=== PATIENT | female | born 1955 | race Caucasian/White ===

== ENCOUNTER → 2016-12-08 | Outpatient (REF) | payer OTHER | LOC: M LAB REF 12:58 | PROVIDERS: ATTEND Internal Medicine Medical Oncology | DX: C20 Malignant neoplasm of rectum (principal) ==

== ENCOUNTER → 2017-02-16 | Outpatient (REF) | payer OTHER | LOC: M LAB REF 19:25 | PROVIDERS: ATTEND Physician Assistant | DX: J02.9 Acute pharyngitis, unspecified (principal) ==

== ENCOUNTER → 2017-04-19 | Outpatient (CLI) | payer OTHER ==
[~2017-04-19] MED LIST: GASTROGRAFIN SOLUTION 30ML (Q9963) As Ordered ONE; ISOVUE-370 76% 100ML VIAL (Q9967) As Ordered ONE
--- NOTE | 2017-04-19 16:14 | REP ---
CT of the chest with IV contrast: Comparison is 04/14/2015. There are no lung masses or nodules. There are no infiltrates or effusions. There is no mediastinal, hilar or axillary adenopathy. The thoracic aorta is unremarkable. Cardiac size is normal. There is no pericardial effusion. Impression: Negative CT study of the chest. There is no interval change. Signed by Hiram Duong MD 04/19/2017 04:05 P
--- NOTE | 2017-04-19 16:24 | REP ---
CT of the abdomen and pelvis without and with IV contrast and with bowel contrast: The liver is study prior to IV contrast. After IV contrast scanning of the abdomen from the diaphragms to the pubic symphysis is performed.. The visualized lower lung smith are unremarkable. The hepatic parenchyma is homogeneous on both phases of the study except for a small hepatic cyst in the left lobe of the liver. This is unchanged. The gallbladder, pancreas and spleen are unremarkable and unchanged. The adrenals, kidneys and abdominal aorta are unremarkable except for bilateral renal parapelvic cysts, unchanged. There is no mesenteric or retroperitoneal adenopathy. There is no ascites. There is midline ventral hernia containing a loop of colon just posterior to the umbilicus. This is slightly larger than on the comparison study. There is a new spigelian hernia on the right containing multiple large bowel and small bowel loops, not present previously. The peritoneal defect measures 4.9 cm and the hernia sac measures 16 cm craniocaudad by 21 cm transversely. There is no bowel obstruction. No bowel wall thickening. No edema of the mesenteric fat within the hernia. Pelvis: The cecum and appendix c are contained in the large right lower quadrant hernia sac t but are unremarkable. There is no ascites or adenopathy. The bladder, uterus and adnexa are unremarkable except for an 18 mm right adnexal follicle and a 19 mm left adnexal follicle. Impression: No evidence of metastatic disease, ascites or adenopathy. No evidence of tumor recurrence at the anastomosis of the rectosigmoid colon. There is a new large right lower quadrant spigelian hernia. There is a ventral hernia behind the umbilicus containing a loop of colon, larger than on the comparison study. There are bilateral adnexal follicles. Otherwise, negative CT of the abdomen and pelvis. Signed by Hiram Duong MD 04/19/2017 04:16 P
== END ==
LOC: M RAD 13:07
PROVIDERS: ATTEND Internal Medicine Medical Oncology
DX: C20 Malignant neoplasm of rectum (principal)

== ENCOUNTER → 2017-04-22 | Outpatient (REF) | payer OTHER | LOC: M LAB REF 13:20 | PROVIDERS: ATTEND Internal Medicine Medical Oncology | DX: C20 Malignant neoplasm of rectum (principal) ==

== ENCOUNTER → 2017-10-24 | Outpatient (REF) | payer OTHER ==
[2017-10-25 09:36] LABS: CARCINOEMBRYONIC ANTIGEN < 0.5 NG/ML (<2.5)
== END ==
LOC: M LAB REF 13:29
DX: C20 Malignant neoplasm of rectum (principal)
CPT/HCPCS: 82378

== ENCOUNTER 2018-03-18 08:01 | Emergency (ER) | payer OTHER ==
[2018-03-18] MEDS: NS 1,000 ML IV (09:30)
[2018-03-18 10:09] LABS: BASO % 0.3 % (0.0-1.0); EOS # 0.2 10^3/uL (0.0-0.50); HEMATOCRIT 41.8 % (36.0-47.0); HEMOGLOBIN 13.4 g/dl (12.0-15.5); IMMATURE GRANULOCYTE % 0.4 % (0-3.0); LYMPH # 1.1 10^3/uL (1.5-4.5); LYMPH % 9.2 % (24.0-44.0); MEAN CORPUSCULAR HEMOGLOBIN 25.5 pg (27.0-33.0); MEAN CORPUSCULAR HGB CONC 32.1 g/dl (32.0-36.5); MEAN CORPUSCULAR VOLUME 79.6 fl (80.0-96.0); MONO # 0.8 10^3/uL (0.0-0.8); MONO % 6.9 % (0.0-5.0); NEUTROPHILS # 9.4 10^3/uL (1.8-7.7); NEUTROPHILS % 81.2 % (36.0-66.0); PLATELET COUNT, AUTOMATED 343 10^3/uL (150-450); RED BLOOD COUNT 5.25 10^6/uL (4.00-5.40); RED CELL DISTRIBUTION WIDTH 14.9 % (11.5-14.5); WHITE BLOOD COUNT 11.6 10^3/uL (4.0-10.0)
[2018-03-18 10:33] LABS: ALBUMIN 2.8 GM/DL (3.2-5.2); ALBUMIN/GLOBULIN RATIO 0.72 (1.00-1.93); ALKALINE PHOSPHATASE 88 U/L (45-117); ALT/SGPT 13 U/L (12-78); AMYLASE 27 U/L (25-115); ANION GAP 10 MEQ/L (8-16); AST/SGOT 15 U/L (7-37); BILIRUBIN,DIRECT 0.1 MG/DL (0.0-0.2); BILIRUBIN,TOTAL 0.4 MG/DL (0.2-1.0); BLOOD UREA NITROGEN 13 MG/DL (7-18); CALCIUM LEVEL 8.1 MG/DL (8.8-10.2); CARBON DIOXIDE LEVEL 25 MEQ/L (21-32); CHLORIDE LEVEL 105 MEQ/L (98-107); CPK CREATINE PHOSPHOKINASE 204 U/L (26-192); CREATININE FOR GFR 0.63 MG/DL (0.55-1.30); GLOMERULAR FILTRATION RATE > 60.0 (>45); GLUCOSE, FASTING 124 MG/DL (70-100); LIPASE 99 U/L (73-393); POTASSIUM SERUM 4.1 MEQ/L (3.5-5.1); SODIUM LEVEL 140 MEQ/L (136-145); TOTAL PROTEIN 6.7 GM/DL (6.4-8.2); TROPONIN I < 0.02 NG/ML (< 0.10)
[2018-03-18 10:34] LABS: CK-MB VALUE MASS 1.1 NG/ML (<3.6); MB/CK RELATIVE INDEX 0.53 (< OR =4)
[2018-03-18 11:03] LABS: CALCIUM OXALATE CRYSTALS RFX SMALL; KETONE, URINE AUTO RFX NEGATIVE (NEGATIVE); LEUKOCYTE ESTERASE UR AUTO RFX TRACE (NEGATIVE); MUCUS, URINE RFX SMALL (NEGATIVE); NITRITE, URINE AUTO RFX NEGATIVE (NEGATIVE); RBC, URINE AUTO RFX 5 /HPF (0-3); SQUAM EPITHELIAL CELL UR AURFX 3 /HPF (0-6); WBC, URINE AUTO RFX 7 /HPF (0-3)
[2018-03-18] MEDS: GASTROGRAFIN SOLUTION 30ML PO ×2 (11:33→12:03)
[2018-03-18] MEDS ORDERED: ISOVUE-370 76% 100ML VIAL (Q9967) As Ordered (12:18)
== END 2018-03-18 14:43 | disposition home or self-care (01) ==
LOC: M ED 08:01
DX: K52.9 Noninfective gastroenteritis and colitis, unspecified (principal); L08.9 Local infection of the skin and subcutaneous tissue, unspecified; K76.0 Fatty (change of) liver, not elsewhere classified; Z85.038 Personal history of other malignant neoplasm of large intestine; Z93.2 Ileostomy status; Z89.412 Acquired absence of left great toe; Z91.89 Other specified personal risk factors, not elsewhere classified; Z88.0 Allergy status to penicillin; Z88.1 Allergy status to other antibiotic agents
CPT/HCPCS: Q9963

== ENCOUNTER → 2018-04-21 | Outpatient (CLI) | payer OTHER ==
[~2018-04-21] MED LIST changes: -GASTROGRAFIN SOLUTION 30ML (Q9963) As Ordered ONE; +ISOVUE-370 76% 100ML VIAL (Q9967) As Ordered; -ISOVUE-370 76% 100ML VIAL (Q9967) As Ordered ONE
== END ==
LOC: M RAD 09:28
DX: C20 Malignant neoplasm of rectum (principal); J84.10 Pulmonary fibrosis, unspecified
CPT/HCPCS: Q9967

== ENCOUNTER → 2018-05-23 | Outpatient (CLI) | payer OTHER ==
[~2018-05-23] MED LIST changes: +GASTROGRAFIN SOLUTION 30ML (Q9963) As Ordered
== END ==
LOC: M RAD 12:27
DX: C20 Malignant neoplasm of rectum (principal)
CPT/HCPCS: Q9963

== ENCOUNTER → 2018-05-24 | Outpatient (REF) | payer OTHER ==
[2018-05-24 19:27] LABS: FERRITIN 188 NG/ML (8-252); IRON (FE) 57 UG/DL (50-170); PERCENT SATURATION 24.2 % (13.2-45.0); TOTAL IRON BINDING CAPACITY 236 UG/DL (250-450)
[2018-05-26 10:12] LABS: CARCINOEMBRYONIC ANTIGEN < 0.5 NG/ML (<2.5)
== END ==
LOC: M LAB REF 18:00
DX: Z08 Encounter for follow-up examination after completed treatment for malignant neoplasm (principal); Z85.048 Personal history of other malignant neoplasm of rectum, rectosigmoid junction, and anus
CPT/HCPCS: 82378

== ENCOUNTER 2018-11-03 11:43 | Emergency (ER) | payer BC ==
[~2018-11-03] VITALS: Ht 165.1 cm; Wt 110.0 kg
[2018-11-03 11:43] VITALS: BP 134/85
[~2018-11-03 11:43] MED LIST changes: -ONDA4TAB6 PO
[2018-11-03] MEDS: GASTROGRAFIN SOLUTION 30ML PO SCH ×2 (12:33→13:05)
[2018-11-03 12:34] LABS: BASO % 0.3 % (0.0-1.0); EOS # 0.3 10^3/uL (0.0-0.50); EOS % 2.8 % (0.0-3.0); HEMATOCRIT 44.7 % (36.0-47.0); HEMOGLOBIN 14.3 g/dl (12.0-15.5); LYMPH # 1.5 10^3/uL (1.5-4.5); LYMPH % 14.6 % (24.0-44.0); MEAN CORPUSCULAR HEMOGLOBIN 26.8 pg (27.0-33.0); MEAN CORPUSCULAR VOLUME 83.7 fl (80.0-96.0); MONO # 0.9 10^3/uL (0.0-0.8); MONO % 8.9 % (0.0-5.0); NEUTROPHILS # 7.3 10^3/uL (1.8-7.7); PLATELET COUNT, AUTOMATED 325 10^3/uL (150-450); RED BLOOD COUNT 5.34 10^6/uL (4.00-5.40)
[2018-11-03 13:05] LABS: ALBUMIN 3.1 GM/DL (3.2-5.2); ALT/SGPT 18 U/L (12-78); BILIRUBIN,DIRECT 0.2 MG/DL (0.0-0.2); BILIRUBIN,TOTAL 0.7 MG/DL (0.2-1.0); BLOOD UREA NITROGEN 12 MG/DL (7-18); CALCIUM LEVEL 8.6 MG/DL (8.8-10.2); CARBON DIOXIDE LEVEL 27 MEQ/L (21-32); CHLORIDE LEVEL 106 MEQ/L (98-107); CREATININE FOR GFR 0.67 MG/DL (0.55-1.30); GLOMERULAR FILTRATION RATE > 60.0 (>45); GLUCOSE, FASTING 92 MG/DL (70-100); LIPASE 110 U/L (73-393); POTASSIUM SERUM 4.4 MEQ/L (3.5-5.1); SODIUM LEVEL 140 MEQ/L (136-145); TOTAL PROTEIN 6.8 GM/DL (6.4-8.2)
[2018-11-03] MEDS ORDERED: ISOVUE-370 76% 100ML VIAL (Q9967) As Ordered ONE (14:00)
--- NOTE | 2018-11-03 14:35 | REP ---
Clinical: Abdominal pain and diarrhea. Technique: Axial contrast enhanced images from the lung bases to the pubic symphysis using oral (per protocol) and 100 ml Isovue 370 intravenous contrast material with coronal and sagittal re-formations. Comparison: 05/23/2018. Findings: Mucosal thickening of small bowel in the mid to lower abdomen is appreciated suggesting infectious/inflammatory enteritis. Few of these irregular loops of small bowel appear somewhat tethered to the anterior abdominal wall in relation to the a known small midline ventral hernia which contains a small amount of fluid and trapped fat but without evidence for associated bowel obstruction (images [id number]). Along the right lateral anterior abdominopelvic wall there is a rim enhancing centrally necrotic/cystic lesion with surrounding small amount of fluid and subcutaneous fat stranding which currently measures roughly 6.5 x 4.4 cm and is decreased from prior examination (previously measuring 7.8 x 7.0 cm). This may reflect abscess versus necrotic metastatic focus. Liver, spleen, pancreas, gallbladder, bilateral adrenal glands and kidneys are normal / stable. Bilateral dinorah pelvic renal cysts are again noted. Pelvis demonstrates normal bladder and age-appropriate uterus/adnexa there appears to be evidence for prior partial sigmoid resection and reanastomosis at the rectosigmoid level which appears clean. No significant ascites. No free air. No intraperitoneal or retroperitoneal adenopathy. Abdominal aorta without aneurysm or dissection. Osseous structures without focal aggressive osseous lesion. Lung bases are clear. Impression: 1. Moderate length of small bowel demonstrating mucosal thickening suggests an acute infectious/inflammatory enteritis. However, given the patient's history, malignancy cannot definitively be excluded and warrants followup to resolution. 2. Anterior abdominal wall ventral hernia containing fluid and trapped fat with the above mentioned adjacent small bowel but without evidence for small bowel obstruction. This appears similar to prior examination. 3. Abscess versus a cystic / necrotic lesion in the subcutaneous tissues of the anterior right lateral abdominal wall is decreased in size from prior examination. 4. Further chronic changes as described above. Electronically Signed by Ovi Saunders MD 11/03/2018 02:26 P
[2018-11-03] MEDS ORDERED: ONDA4TAB6 PO (15:24)
== END 2018-11-03 15:34 | disposition home or self-care (01) ==
LOC: M ED 11:43
DX: K52.9 Noninfective gastroenteritis and colitis, unspecified (principal)
CPT/HCPCS: 74177; 80048; 80076; 81001; 83690; 85025; 87086; 99283; Q9963; Q9967

== ENCOUNTER → 2018-11-03 | Outpatient (REF) | payer BC ==
[~2018-11-03] MED LIST changes: +CIPR-249 PO; +FLAG500T PO; -GASTROGRAFIN SOLUTION 30ML (Q9963) As Ordered; -ISOVUE-370 76% 100ML VIAL (Q9967) As Ordered; +NORCOTAB PO; +ONDA4TAB6 PO
== END ==
LOC: M LAB REF 18:49
PROVIDERS: ATTEND Emergency Medicine
DX: Z13.9 Encounter for screening, unspecified (principal)

== ENCOUNTER → 2018-11-27 | Outpatient (CLI) | payer BC ==
[~2018-11-27] MED LIST changes: +ONDA4TAB6 PO
[2018-11-27 10:21] LABS: BASO # 0.1 10^3/uL (0.0-0.2); BASO % 0.8 % (0.0-1.0); EOS # 0.5 10^3/uL (0.0-0.50); EOS % 6.1 % (0.0-3.0); HEMATOCRIT 39.8 % (36.0-47.0); HEMOGLOBIN 12.7 g/dl (12.0-15.5); LYMPH # 1.6 10^3/uL (1.5-4.5); LYMPH % 22.2 % (24.0-44.0); MEAN CORPUSCULAR HEMOGLOBIN 26.7 pg (27.0-33.0); MEAN CORPUSCULAR HGB CONC 31.9 g/dl (32.0-36.5); MEAN CORPUSCULAR VOLUME 83.6 fl (80.0-96.0); MONO # 0.7 10^3/uL (0.0-0.8); MONO % 9.5 % (0.0-5.0); NEUTROPHILS # 4.5 10^3/uL (1.8-7.7); NEUTROPHILS % 61.3 % (36.0-66.0); PLATELET COUNT, AUTOMATED 275 10^3/uL (150-450); RED BLOOD COUNT 4.76 10^6/uL (4.00-5.40); WHITE BLOOD COUNT 7.3 10^3/uL (4.0-10.0)
[2018-11-27 10:56] LABS: ALBUMIN 3.3 GM/DL (3.2-5.2); ALT/SGPT 17 U/L (12-78); BILIRUBIN,TOTAL 0.4 MG/DL (0.2-1.0); BLOOD UREA NITROGEN 14 MG/DL (7-18); CALCIUM LEVEL 8.4 MG/DL (8.8-10.2); CARBON DIOXIDE LEVEL 29 MEQ/L (21-32); CHLORIDE LEVEL 106 MEQ/L (98-107); CHOLESTEROL LEVEL 170 MG/DL (<200); CHOLESTEROL RISK RATIO 2.741 (<5); CREATININE FOR GFR 0.66 MG/DL (0.55-1.30); FREE T4 1.18 NG/DL (0.76-1.46); GLOMERULAR FILTRATION RATE > 60.0 (>45); GLUCOSE, FASTING 95 MG/DL (70-100); HDL CHOLESTEROL 62 MG/DL (>40); LDL CHOLESTEROL 96 MG/DL (<100); NON-HDL-C 108 MG/DL; POTASSIUM SERUM 3.8 MEQ/L (3.5-5.1); SODIUM LEVEL 142 MEQ/L (136-145); TOTAL PROTEIN 6.7 GM/DL (6.4-8.2); TRIGLYCERIDES LEVEL 61 MG/DL (<150)
== END ==
LOC: M LAB 09:31
PROVIDERS: ATTEND Physician Assistant Medical
DX: Z00.00 Encounter for general adult medical examination without abnormal findings (principal); Z82.49 Family history of ischemic heart disease and other diseases of the circulatory system

== ENCOUNTER 2018-12-15 21:19 | Emergency (ER) | payer BC ==
[~2018-12-15] VITALS: Ht 165.1 cm; Wt 109.1 kg
[~2018-12-15 21:19] MED LIST changes: +HYDR-3715 PO; -NORCOTAB PO
[2018-12-15] MEDS: GASTROGRAFIN SOLUTION 30ML PO SCH ×2 (22:30→23:00)
[2018-12-15 22:42] LABS: BASO # 0.1 10^3/uL (0.0-0.2); BASO % 0.6 % (0.0-1.0); EOS # 0.4 10^3/uL (0.0-0.50); EOS % 4.6 % (0.0-3.0); HEMATOCRIT 40.3 % (36.0-47.0); HEMOGLOBIN 13.1 g/dl (12.0-15.5); LYMPH # 2.1 10^3/uL (1.5-4.5); MEAN CORPUSCULAR HGB CONC 32.5 g/dl (32.0-36.5); MEAN CORPUSCULAR VOLUME 82.9 fl (80.0-96.0); MONO # 0.7 10^3/uL (0.0-0.8); MONO % 8.5 % (0.0-5.0); NEUTROPHILS # 5.1 10^3/uL (1.8-7.7); NEUTROPHILS % 61.1 % (36.0-66.0); PLATELET COUNT, AUTOMATED 244 10^3/uL (150-450); RED BLOOD COUNT 4.86 10^6/uL (4.00-5.40); WHITE BLOOD COUNT 8.3 10^3/uL (4.0-10.0)
[2018-12-15 23:09] LABS: ALBUMIN 3.2 GM/DL (3.2-5.2); ALT/SGPT 14 U/L (12-78); BILIRUBIN,DIRECT 0.1 MG/DL (0.0-0.2); BILIRUBIN,TOTAL 0.5 MG/DL (0.2-1.0); BLOOD UREA NITROGEN 13 MG/DL (7-18); CALCIUM LEVEL 8.2 MG/DL (8.8-10.2); CARBON DIOXIDE LEVEL 26 MEQ/L (21-32); CHLORIDE LEVEL 106 MEQ/L (98-107); CREATININE FOR GFR 0.62 MG/DL (0.55-1.30); GLOMERULAR FILTRATION RATE > 60.0 (>45); GLUCOSE, FASTING 91 MG/DL (70-100); LIPASE 111 U/L (73-393); POTASSIUM SERUM 3.6 MEQ/L (3.5-5.1); SODIUM LEVEL 141 MEQ/L (136-145); TOTAL PROTEIN 6.3 GM/DL (6.4-8.2)
[2018-12-16] MEDS ORDERED: CIPR-249 PO (00:09)
[2018-12-16 00:30] VITALS: BP 133/79
--- NOTE | 2018-12-16 08:11 | REP ---
Abdomen series: Four views. History: Abdomen pain and cough. Findings: Upright chest radiograph is compared with the May 28, 2015 study. Lungs are well inflated and clear. Heart is not enlarged. There is no evidence of infiltrate or free subdiaphragmatic air. Supine and erect views of the abdomen reveal a normal bowel gas pattern. There is an anastomotic suture line in the central pelvis suggesting prior colon resection. No small or large bowel dilation is seen. Flank stripes are intact. No mass organomegaly is appreciated. There are two metallic densities projecting over the right pelvis which appear to be clothing artifact. Impression: Unremarkable bowel gas pattern. Surgical anastomosis in the central pelvis. No evidence of obstruction or free air. Electronically Signed by Nader Dos Santos MD 12/16/2018 08:02 A
== END 2018-12-16 00:55 | disposition home or self-care (01) ==
LOC: M ED 21:19
DX: N39.0 Urinary tract infection, site not specified (principal); Z85.038 Personal history of other malignant neoplasm of large intestine; Z88.0 Allergy status to penicillin; Z88.1 Allergy status to other antibiotic agents; Z91.048 Other nonmedicinal substance allergy status

== ENCOUNTER → 2019-04-17 | Outpatient (CLI) | payer BC ==
[~2019-04-17] MED LIST changes: +GASTROGRAFIN SOLUTION 30ML (Q9963) As Ordered ONE; +ISOVUE-370 76% 100ML VIAL (Q9967) As Ordered ONE
--- NOTE | 2019-04-18 07:36 | REP ---
REASON FOR EXAM: History of rectal carcinoma. COMPARISON EXAM: Multiple, latest which is dated 11/03/2018. CONTRAST: 100 mL Isovue 370. The liver, gallbladder, spleen, pancreas, adrenal glands, and kidneys are unchanged. Once again, there are bilateral renal parapelvic cysts status quo. The abdominal aorta and paraaortic regions are unchanged. No mass or adenopathy has developed. Note is again made of a ventral hernia through which multiple small bowel loops protrude. There is no intestinal obstruction. The bowel loops and their mesenteries are otherwise within normal limits. Small bowel wall thickening seen on the prior exam has abated. There is no free fluid or free air. CT PELVIS: The bowel loops and their mesenteries are within normal limits. There is no free fluid or free air. There is a low density nodule in the right adnexa possibly representing a small 2 cm ovarian cyst. There is a similar finding on the left adnexa possibly representing a small ovarian cyst. This is difficult to evaluate with CT. There is no pelvic sidewall adenopathy. There is no free fluid or free air. Along the right anterior abdominal wall note is again made of a mixed asymmetric density with fatty infiltrations surrounding it. Today this measures all approximately 6.8 x 8.6 x 2.8 cm. It has gotten smaller when the total dimension is compared to the prior total dimension. Bone window technique throughout the examination shows no significant change in the appearance of the osseous structures. Chronic changes are noted status quo. IMPRESSION: 1. Abnormal mixed density along the right anterior abdominal wall at the level of the upper pelvis has gotten smaller. 2. Possible small bilateral ovarian cyst. Consider pelvic ultrasonography if relevant. 3. Ventral hernia as described above. 4. Other findings as described above. Electronically Signed by Enrique Neal DO 04/18/2019 09:34 A
--- NOTE | 2019-04-18 08:10 | REP ---
REASON: History of rectal carcinoma. COMPARISON: Multiple, the latest 04/21/2018. CONTRAST: 100 mL Isovue 370. The mediastinal and pulmonary callie are stable. There is no evidence of a mass or adenopathy. There are no pleural or pericardial effusions. The imaged osseous structures are stable and intact. Evaluation of the lung smith shows no new abnormal nodule, mass, or opacity. IMPRESSION: Stable CT examination of the chest. There is no evidence of acute disease. Electronically Signed by Enrique Neal DO 04/18/2019 09:36 A
== END ==
LOC: M RAD 11:56
PROVIDERS: ATTEND Internal Medicine Medical Oncology
DX: C20 Malignant neoplasm of rectum (principal)

== ENCOUNTER → 2019-04-24 | Outpatient (CLI) | payer BC ==
[~2019-04-24] MED LIST changes: -GASTROGRAFIN SOLUTION 30ML (Q9963) As Ordered ONE; -ISOVUE-370 76% 100ML VIAL (Q9967) As Ordered ONE
--- NOTE | 2019-04-24 15:49 | REPMRS ---
Patient History The patient states she has not had a clinical breast exam in over a year. Patient is postmenopausal, has history of rectal cancer at age 58, and had first child at age 31. Family history of colorectal cancer in father, breast cancer in maternal aunt, unknown cancer in paternal cousin. 3D TOMOSYNTHESIS WAS PERFORMED. The [facility] lifetime risk for breast cancer is 12.6%. Digital Mammo Screening Bilat: April 24, 2019 - Exam #: [id number] Bilateral CC and MLO view(s) were taken. Technologist: Dee Potts, Technologist Prior study comparison: 2017, bilateral screening mammogram, performed at [facility]. FINDINGS: There are scattered fibroglandular densities. There has been no change in the appearance of the mammogram from the prior studies. There is a mild amount of residual fibroglandular tissue which is fairly symmetric. There is no interval development of dominant mass, architectural distortion, or clustered microcalcification suggestive of malignancy. Assessment: BI-RADS/ACR category 1 mammogram. Negative Mammogram. Recommendation Routine screening mammogram in 1 year (for women over age 40). This mammogram was interpreted with the aid of an FDA-approved computer-aided dectection system. Electronically Signed By: Hiram Schuler MD 04/24/19 [id number]
== END ==
LOC: M RAD 11:42
PROVIDERS: ATTEND Physician Assistant Medical
DX: Z12.31 Encounter for screening mammogram for malignant neoplasm of breast (principal); Z85.3 Personal history of malignant neoplasm of breast; Z80.0 Family history of malignant neoplasm of digestive organs; Z85.048 Personal history of other malignant neoplasm of rectum, rectosigmoid junction, and anus

== ENCOUNTER 2019-05-19 14:27 | Emergency (ER) | payer BC ==
[~2019-05-19] VITALS: Ht 165.1 cm; Wt 109.1 kg
[2019-05-19 15:03] LABS: BASO # 0.1 10^3/uL (0.0-0.2); BASO % 0.5 % (0.0-1.0); EOS # 0.1 10^3/uL (0.0-0.5); EOS % 0.8 % (0.0-3.0); HEMATOCRIT 45.2 % (36.0-47.0); HEMOGLOBIN 14.9 g/dl (12.0-15.5); LYMPH # 1.6 10^3/uL (1.5-5.0); LYMPH % 14.8 % (24.0-44.0); MEAN CORPUSCULAR HEMOGLOBIN 27.8 pg (27.0-33.0); MEAN CORPUSCULAR VOLUME 84.3 fl (80.0-96.0); MONO # 0.9 10^3/uL (0.0-0.8); MONO % 8.7 % (0.0-5.0); NEUTROPHILS # 7.9 10^3/uL (1.5-8.5); NEUTROPHILS % 74.9 % (36.0-66.0); PLATELET COUNT, AUTOMATED 284 10^3/uL (150-450); RED BLOOD COUNT 5.36 10^6/uL (4.00-5.40); WHITE BLOOD COUNT 10.5 10^3/uL (4.0-10.0)
[2019-05-19 15:41] LABS: ALBUMIN 3.3 GM/DL (3.2-5.2); ALT/SGPT 15 U/L (12-78); AMYLASE 30 U/L (25-115); BILIRUBIN,DIRECT 0.2 MG/DL (0.0-0.2); BILIRUBIN,TOTAL 0.6 MG/DL (0.2-1.0); BLOOD UREA NITROGEN 17 MG/DL (7-18); CALCIUM LEVEL 8.5 MG/DL (8.8-10.2); CARBON DIOXIDE LEVEL 24 MEQ/L (21-32); CHLORIDE LEVEL 103 MEQ/L (98-107); CREATININE FOR GFR 0.74 MG/DL (0.55-1.30); GLOMERULAR FILTRATION RATE > 60.0 (>45); GLUCOSE, FASTING 104 MG/DL (70-100); LIPASE 99 U/L (73-393); POTASSIUM SERUM 4.1 MEQ/L (3.5-5.1); SODIUM LEVEL 137 MEQ/L (136-145); TOTAL PROTEIN 6.6 GM/DL (6.4-8.2)
[2019-05-19 16:03] LABS: APPEARANCE, URINE TURBID (CLEAR); BACTERIA, URINE AUTO NEGATIVE (NEGATIVE); BILIRUBIN, URINE AUTO NEGATIVE (NEGATIVE); BLOOD, URINE BLOOD 1+ (NEGATIVE); COLOR, URINE AMBER (YELLOW); GLUCOSE, URINE (UA) AUTO NEGATIVE (NEGATIVE); KETONE, URINE AUTO TRACE mg/dL (NEGATIVE); LEUKOCYTE ESTERASE, URINE AUTO 3+ (NEGATIVE); MUCUS, URINE SMALL (NEGATIVE); NITRITE, URINE AUTO NEGATIVE (NEGATIVE); PROTEIN, URINE AUTO NEGATIVE (NEGATIVE); RBC, URINE AUTO 2 /HPF (0-3); SPECIFIC GRAVITY URINE AUTO 1.025 (1.002-1.035); SQUAMOUS EPITHELIAL CELL UR AU 4 /HPF (0-6); UROBILINOGEN, URINE AUTO 0.2 mg/dL (0.0-2.0); WBC, URINE AUTO 31 /HPF (0-3)
[2019-05-19] MEDS ORDERED: ISOVUE-370 76% 100ML VIAL (Q9967) As Ordered ONE (17:03)
[2019-05-19] MEDS: GASTROGRAFIN SOLUTION 30ML PO SCH ×2 (17:32→17:44)
[2019-05-19] MEDS ORDERED: NS 500 ML IV ONE (20:45)
--- NOTE | 2019-05-19 20:49 | REPVR ---
EXAM: CT Abdomen and Pelvis With Contrast EXAM DATE/TIME: 05/19/2019 7:22 PM CLINICAL HISTORY: 63 years old, female; Abdominal pain; Generalized; Additional info: Pelvic pain, HX of ovarian cysts/ventral hernia repair, n/v TECHNIQUE: Imaging protocol: Computed tomography of the abdomen and pelvis with intravenous contrast. Radiation optimization: All CT scans at this facility use at least one of these dose optimization techniques: automated exposure control; mA and/or kV adjustment per patient size (includes targeted exams where dose is matched to clinical indication); or iterative reconstruction. Contrast material: ISOVUE 370; Contrast volume: 100 ml; Contrast route: IV; COMPARISON: CT ABD/PEL W/IV ORAL CONTRAS 04/17/2019 1:42 PM FINDINGS: Lungs: Minimal bibasilar fibro-atelectatic change. Mediastinum: Minimal hiatal hernia. Liver: The liver attenuation is 76 Hounsfield units and the spleen is 128 Hounsfield units. Gallbladder and bile ducts: Normal. No calcified stones. No ductal dilation. Pancreas: Normal. No ductal dilation. Spleen: Normal. No splenomegaly. Adrenals: Normal. No mass. Kidneys and ureters: Bilateral renal peripelvic cysts measuring up to 3.1 cm on the right. Stomach and bowel: Proximal rectal anastomosis. The afferent segment of small bowel is borderline distended and also demonstrates wall thickening which does involve the segments of small bowel extending into the hernia and extending along the anterior pelvis which is new or increased since the prior study consistent with enteritis. Appendix: A normal appendix is seen. Intraperitoneal space: There is slight induration of the supplying mesentery to the abnormal anterior pelvic segments. Mild free fluid in the anterior pelvis which is probably reactive and new. Vasculature: Unremarkable. No abdominal aortic aneurysm. Lymph nodes: Unremarkable. No enlarged lymph nodes. Bladder: Unremarkable as visualized. Reproductive: At ovarian cyst measuring 2.5 cm. Bones/joints: Unremarkable. No acute fracture. Soft tissues: Anterior pelvic scar or old incision which is similar to slightly decreased since the prior study. Epigastric ventral wall hernia extending to the right just above the umbilicus containing 2 short segments of small bowel. IMPRESSION: 1. Small bowel wall thickening primarily of the anterior pelvis and lower abdomen with associated induration of supplying mesentery consistent with enteritis, new since 04/17/2019. 2. Ventral wall hernia containing 2 adjacent segments of small bowel with suggestion of low grade obstruction. Enteritis involves the segments within the hernia as well as the afferent segments. 3. Right ovarian cyst measuring 2.5 cm which is probably similar to the prior study. 4. Fatty infiltration of the liver. 5. Residual anterior pelvic incision which is similar to slightly decreased. 6. Mild free fluid in the anterior pelvis which is probably reactive and new since the prior study. Electronically signed by: Govind Garcia On 05/19/2019 20:49:21 PM
[2019-05-19] MEDS ORDERED: KETOROLAC 30 MG/ML VIAL (J1885) IV ONE (21:45)
[2019-05-19] MEDS ORDERED: METOCLOPRAMIDE INJ 10MG/2ML VIAL (J2765) IV ONE (22:30)
[2019-05-19] MEDS ORDERED: CIPR-249 PO (23:11)
[2019-05-19] MEDS ORDERED: CIPROFLOXACIN 500 MG TAB PO ONE (23:30)
[2019-05-19 23:32] VITALS: BP 150/68
--- NOTE | 2019-05-22 12:17 | ED PDOC ---
Post-Departure Follow-Up sharon gonzalez and dr chen faxed formal report of ct abd/p for fu Liseth Mcguire MD May 22, 2019 12:17
== END 2019-05-19 23:40 | disposition home or self-care (01) ==
LOC: M ED 14:27
DX: N39.0 Urinary tract infection, site not specified (principal); K52.9 Noninfective gastroenteritis and colitis, unspecified; K43.6 Other and unspecified ventral hernia with obstruction, without gangrene; Z88.0 Allergy status to penicillin; Z88.1 Allergy status to other antibiotic agents; Z88.8 Allergy status to other drugs, medicaments and biological substances; Z91.048 Other nonmedicinal substance allergy status
CPT/HCPCS: 74177; 80048; 80076; 81001; 82150; 83690; 85025; 96361; 96374; 96375; 99284; J1885; J2765; Q9963; Q9967

== ENCOUNTER → 2019-06-15 | Outpatient (REF) | payer BC ==
[2019-06-15 13:32] LABS: APPEARANCE, URINE MANUAL TURBID (CLEAR); BILIRUBIN, URINE MANUAL NEGATIVE (NEGATIVE); BLOOD URINE MANUAL NEGATIVE (NEGATIVE); COLOR, URINE MANUAL YELLOW (YELLOW); GLUCOSE, URINE (UA) MANUAL NEGATIVE (NEGATIVE); KETONE, URINE MANUAL NEGATIVE (NEGATIVE); LEUKOCYTE ESTERASE, URINE MAN POSITIVE (NEGATIVE); NITRITE, URINE MANUAL NEGATIVE (NEGATIVE); PROTEIN, URINE MANUAL NEGATIVE (NEGATIVE); SPECIFIC GRAVITY,URINE MANUAL 1.025 (1.002-1.035); UROBILINOGEN, URINE MANUAL NORMAL (NORMAL)
[2019-06-15 13:37] LABS: AMORPHOUS SEDIMENT, URINE URATES (NEGATIVE); BACTERIA, URINE SMALL AMOUNT; CALCIUM OXALATE CRYSTALS,URINE MOD AMOUNT /hpf; HYALINE CAST, URINE NONE SEEN /lpf (0-1); RBC, URINE NONE SEEN /hpf (0-3); SQUAMOUS EPITHELIAL CELL URINE NONE SEEN /hpf (SMALL AMT)
== END ==
LOC: M LAB REF 12:42
PROVIDERS: ATTEND Physician Assistant
DX: N39.0 Urinary tract infection, site not specified (principal)

== ENCOUNTER → 2019-08-05 | Outpatient (CLI) | payer BC ==
[2019-08-05 13:14] LABS: ALBUMIN 3.3 GM/DL (3.2-5.2); ALT/SGPT 17 U/L (12-78); AMYLASE 28 U/L (25-115); BASO % 0.2 % (0.0-1.0); BILIRUBIN,TOTAL 0.8 MG/DL (0.2-1.0); BLOOD UREA NITROGEN 21 MG/DL (7-18); CALCIUM LEVEL 9.3 MG/DL (8.8-10.2); CARBON DIOXIDE LEVEL 30 MEQ/L (21-32); CHLORIDE LEVEL 105 MEQ/L (98-107); GLOMERULAR FILTRATION RATE > 60.0 (>45); GLUCOSE, FASTING 168 MG/DL (70-100); HEMATOCRIT 49.2 % (36.0-47.0); HEMOGLOBIN 15.5 g/dl (12.0-15.5); LIPASE 71 U/L (73-393); LYMPH # 1.2 10^3/uL (1.5-5.0); LYMPH % 8.7 % (24.0-44.0); MEAN CORPUSCULAR HEMOGLOBIN 27.5 pg (27.0-33.0); MEAN CORPUSCULAR HGB CONC 31.5 g/dl (32.0-36.5); MEAN CORPUSCULAR VOLUME 87.4 fl (80.0-96.0); MONO # 0.9 10^3/uL (0.0-0.8); MONO % 6.5 % (0.0-5.0); NEUTROPHILS # 11.4 10^3/uL (1.5-8.5); NEUTROPHILS % 84.2 % (36.0-66.0); PLATELET COUNT, AUTOMATED 344 10^3/uL (150-450); POTASSIUM SERUM 4.3 MEQ/L (3.5-5.1); RED BLOOD COUNT 5.63 10^6/uL (4.00-5.40); SODIUM LEVEL 141 MEQ/L (136-145); TOTAL PROTEIN 7.1 GM/DL (6.4-8.2); WHITE BLOOD COUNT 13.5 10^3/uL (4.0-10.0)
== END ==
LOC: M WUC 09:13
PROVIDERS: ATTEND Physician Assistant
DX: R30.0 Dysuria (principal)

== ENCOUNTER 2019-09-20 21:30 | Observation (INO) | payer BC ==
[~2019-09-20] VITALS: Ht 165.1 cm; Wt 108.6 kg
[2019-09-20 22:25] LABS: BASO % 0.2 % (0.0-1.0); HEMATOCRIT 49.3 % (36.0-47.0); HEMOGLOBIN 15.7 g/dl (12.0-15.5); LYMPH # 0.6 10^3/uL (1.5-5.0); LYMPH % 4.3 % (24.0-44.0); MEAN CORPUSCULAR HEMOGLOBIN 26.9 pg (27.0-33.0); MEAN CORPUSCULAR HGB CONC 31.8 g/dl (32.0-36.5); MEAN CORPUSCULAR VOLUME 84.6 fl (80.0-96.0); MONO # 0.5 10^3/uL (0.0-0.8); MONO % 3.3 % (0.0-5.0); NEUTROPHILS # 13.7 10^3/uL (1.5-8.5); NEUTROPHILS % 91.7 % (36.0-66.0); PLATELET COUNT, AUTOMATED 297 10^3/uL (150-450); RED BLOOD COUNT 5.83 10^6/uL (4.00-5.40); WHITE BLOOD COUNT 14.9 10^3/uL (4.0-10.0)
[2019-09-20 22:44] LABS: ALBUMIN 3.4 GM/DL (3.2-5.2); ALT/SGPT 16 U/L (12-78); BILIRUBIN,DIRECT 0.2 MG/DL (0.0-0.2); BILIRUBIN,TOTAL 0.5 MG/DL (0.2-1.0); BLOOD UREA NITROGEN 17 MG/DL (7-18); CARBON DIOXIDE LEVEL 23 MEQ/L (21-32); CHLORIDE LEVEL 105 MEQ/L (98-107); CREATININE FOR GFR 0.77 MG/DL (0.55-1.30); GLOMERULAR FILTRATION RATE > 60.0 (>45); GLUCOSE, FASTING 204 MG/DL (70-100); LIPASE 68 U/L (73-393); POTASSIUM SERUM 4.1 MEQ/L (3.5-5.1); SODIUM LEVEL 142 MEQ/L (136-145); TOTAL PROTEIN 7.1 GM/DL (6.4-8.2)
[2019-09-20] MEDS ORDERED: NS 1,000 ML IV ONE (23:00)
[2019-09-20] MEDS ORDERED: ONDANSETRON 4MG/2ML VIAL (J2405) IV ONE (23:15)
[2019-09-20] MEDS ORDERED: KETOROLAC 30 MG/ML VIAL (J1885) IV ONE (23:30)
[2019-09-20] MEDS ORDERED: ISOVUE-370 76% 100ML VIAL (Q9967) As Ordered ONE (23:35)
--- NOTE | 2019-09-21 00:30 | REPVR ---
PROCEDURE INFORMATION: Exam: US Abdomen Limited, Right Upper Quadrant Exam date and time: 09/20/2019 11:57 PM Age: 63 years old Clinical indication: Abdominal pain; Epigastric; Additional info: Ruq pain TECHNIQUE: Imaging protocol: Real-time ultrasound of the abdomen with image documentation. Examination was focused on the right upper quadrant. COMPARISON: GALLBLADDER US 2018-03-18 10:26 FINDINGS: Limitations: Limited by patient's body habitus. Liver: Hepatic steatosis. Gallbladder: Normal. No gallstones. There is no gallbladder wall thickening. Common bile duct: Normal. No stones. No dilation. Pancreas: Not visualized well. Right kidney: Normal. No mass. No hydronephrosis. IMPRESSION: No acute abnormality. Electronically signed by: Andrew Moffett On 09/21/2019 00:30:15 AM
--- NOTE | 2019-09-21 00:32 | REPVR ---
PROCEDURE INFORMATION: Exam: CT Abdomen And Pelvis With Contrast Exam date and time: 09/20/2019 11:27 PM Age: 63 years old Clinical indication: Abdominal pain; Generalized; Patient HX: Diffuse pain; Additional info: Diffuse abdominal pain, HX rectal cancer TECHNIQUE: Imaging protocol: Computed tomography of the abdomen and pelvis with intravenous contrast. Radiation optimization: All CT scans at this facility use at least one of these dose optimization techniques: automated exposure control; mA and/or kV adjustment per patient size (includes targeted exams where dose is matched to clinical indication); or iterative reconstruction. Contrast material: ISO; Contrast volume: 100 ml; Contrast route: AC; COMPARISON: CT ABD/PEL W/IV ORAL CONTRAS 2019-05-19 19:20 FINDINGS: Mediastinum: Small gastroesophageal sliding type hiatal hernia. Liver: Hepatic steatosis. Gallbladder and bile ducts: Normal. No calcified stones. No ductal dilation. Pancreas: Normal. No ductal dilation. Spleen: Normal. No splenomegaly. Adrenals: Normal. No mass. Kidneys and ureters: Numerous peripelvic renal cysts measuring up to 2 cm. Stomach and bowel: Dilated small bowel loops filled with fluid with transition point at the midline abdominal wall hernia, evidence of a high-grade obstruction, correlate if incarcerated or reducible. Small bowel wall thickening within the hernia. Rectal sigmoid bowel anastomosis. Appendix: No evidence of appendicitis. Intraperitoneal space: Small amount of ascites. Couple small focal areas of nodularity along the omentum suggesting omental carcinomatosis. Vasculature: Unremarkable. No abdominal aortic aneurysm. Lymph nodes: Unremarkable. No enlarged lymph nodes. Bladder: Unremarkable as visualized. Reproductive: Unremarkable as visualized. Bones/joints: Unremarkable. No acute fracture. Soft tissues: Unremarkable. IMPRESSION: 1. Dilated small bowel loops filled with fluid with transition point at the midline abdominal wall hernia, evidence of a high-grade obstruction, correlate if incarcerated or reducible. 2. Small bowel wall thickening within the hernia. 3. Small amount of ascites. 4. Couple small focal areas of nodularity along the omentum suggesting omental carcinomatosis. Electronically signed by: Andrew Moffett On 09/21/2019 00:32:45 AM
[2019-09-21] MEDS ORDERED: ACETAMINOPHEN TAB 650MG DOSE (2X325MG) PO PRN (03:15)
[2019-09-21] MEDS ORDERED: MORPHINE 2 MG/ML 1ML VIAL (J2270) IV PRN (03:15)
[2019-09-21] MEDS ORDERED: ONDANSETRON 4 MG TAB (S0181) PO PRN (03:15)
[2019-09-21] MEDS ORDERED: KETOROLAC 30 MG/ML VIAL (J1885) IV PRN (03:15)
[2019-09-21] MEDS: LR 1,000 ML IV SCH ×2 (04:27→11:04)
[2019-09-21 05:04] VITALS: BP 120/73
[2019-09-21 07:00] LABS: BASO % 0.2 % (0.0-1.0); HEMATOCRIT 44.8 % (36.0-47.0); HEMOGLOBIN 13.9 g/dl (12.0-15.5); LYMPH # 1.2 10^3/uL (1.5-5.0); LYMPH % 10.3 % (24.0-44.0); MEAN CORPUSCULAR HEMOGLOBIN 26.8 pg (27.0-33.0); MEAN CORPUSCULAR VOLUME 86.5 fl (80.0-96.0); MONO # 0.9 10^3/uL (0.0-0.8); MONO % 7.5 % (0.0-5.0); NEUTROPHILS # 9.4 10^3/uL (1.5-8.5); NEUTROPHILS % 81.6 % (36.0-66.0); PLATELET COUNT, AUTOMATED 281 10^3/uL (150-450); RED BLOOD COUNT 5.18 10^6/uL (4.00-5.40); WHITE BLOOD COUNT 11.6 10^3/uL (4.0-10.0)
--- NOTE | 2019-09-21 07:12 | HPE ---
DATE OF ADMISSION: 09/20/2019 DIAGNOSIS: Abdominal pain, possible transient incisional hernia incarceration. HISTORY OF PRESENT ILLNESS: The patient is a 63-year-old woman who presented to the emergency department at approximately 9:30 in the evening on September 20 with a complaint of abdominal pain with nausea and vomiting. The patient reports that today's episode started with some pain at about 6:00 to 8:00 in the in the morning. The pain persisted and she described it as being a diffuse all over abdominal pain. Later in the day, she developed vomiting and had perhaps five or more episodes of emesis. The pain continued and she presented to the emergency department at the urging of her daughter. They both report that over the last few years, perhaps twice a year, maybe a little more frequently, she has a similar attack of sudden onset of severe pain with vomiting, but on presentation she has not been found to have a definite problem. She does have a hernia slightly above the umbilicus at the top end of a midline scar which contains some bowel. This has been noted for some time now. Tonight, the hernia was found to be soft and seemingly reducible, though the CT scan was interpreted as showing some small bowel that was dilated above the hernia and decompressed distally. It is possible that she has been having transient incarcerations of her hernia with obstruction that resolved spontaneously. She is still having some mild discomfort tonight and will be placed on observation overnight to see if her pain will resolve or if she has persistent symptoms. ALLERGIES: Reported to PENICILLINS, NEOMYCIN, BACITRACIN, POLYMYXIN B and TAPE. MEDICATIONS: The patient is on no medications currently by her report. SURGICAL HISTORY: The patient was treated for a mid to low-lying rectal cancer which was diagnosed back in 2013. She underwent preoperative radiation therapy followed by a low anterior resection in [place]. She had a diverting ileostomy for some 6 months during which time she did chemotherapy. After her ileostomy was closed, she developed a large incisional hernia through the site and subsequently had this repaired some time in 2016. She has also had bilateral carpal tunnel releases, a tubal ligation in 1990 and surgery on her toe. She had an [id number] placed for her chemotherapy back in 2014. MEDICAL HISTORY: Significant for obesity. She denies any active heart or lung disease. SOCIAL HISTORY: The patient does not smoke and denies any significant alcohol use. She works at [employer]. Her primary physician is Dr. Meghan Bashir. FAMILY HISTORY: Negative for any significant inheritable medical condition. REVIEW OF SYSTEMS: Reveals no chest pain, palpitations, shortness of breath, cough, wheezing or sputum production. She denies dysuria, hematuria, hematochezia or melena. She denies any the weight gain or weight loss. She has no history of deep vein thrombosis (DVT) or pulmonary embolus. PHYSICAL EXAMINATION: Reveals a moderately obese older woman lying quietly on her side on the stretcher. She rolled readily to her back without apparent discomfort when I entered. She is alert, oriented and cooperative with the exam and with the history. Her most recent vital signs showed a temperature of 96.7 with a pulse of 101 and a blood pressure of 137/80. Skin is warm and dry. Sclerae are anicteric. Mucous membranes are moist. Neck is supple, without mass. Heart exam shows a regular rate and rhythm. The lungs were clear to auscultation. The abdomen is somewhat obese. She has a midline scar extending from approximately 6-8 cm above the umbilicus down toward the pubis. There is a small longitudinal scar in a paramedian position in the right lower quadrant. She has some bowel sounds present. There is no definite tympany to percussion. There is no definite tenderness to percussion. On palpation, she has some mild direct tenderness in the right midabdomen and right upper quadrant and epigastrium. This is quite mild. There is a definite soft hernia bulge palpable beneath the supraumbilical portion of her midline scar, though this seems to extend to the right from the midline. There is no tenderness on palpation of this and it does seem to reduce. There are no other hernias evident. Extremities show palpable radial and posterior tibial pulses. There is no peripheral edema. LABORATORY STUDIES: Show a CBC with a white count of 15, hemoglobin of 16, hematocrit of 49 and a platelet count of 297,000. Differential count shows 92% neutrophils, 4% lymphocytes and 3% monocytes. Her chemistry profile shows normal electrolytes with a BUN of 17, creatinine 0.77 and glucose of 204. Her liver function tests are normal as is her lipase at 68. A CT scan of the abdomen and pelvis was done which showed some free fluid about the liver and down in the pelvis. Her hernia in the supraumbilical area was noted with at least two loops of small bowel protruding through this hernia extending to the right. There is no evidence of inflammation within the hernia. The radiologist felt there was an enlargement of the bowel proximal to the hernia and some decreased caliber distal to the hernia and this does seem to be the case. There is evidence for prior surgery with staple line in the rectum. There are some chronic changes in the right abdominal wall at the site of her prior hernia repair. The radiologist also felt that there were some nodular changes of the omentum suggestive of cancer. IMPRESSION: 1. Ventral incisional hernia. 2. Possible transient hernia incarceration with bowel obstruction. 3. History of rectal cancer status post resection and radiation. 4. Obesity. PLAN: It is not clear entirely what has been causing her episodes of pain or whether they in fact represent the same problem each time she has had significant pain. I think it is possible that her episode tonight was in fact a transient incarceration of her ventral hernia with a resulting bowel obstruction leading to the abdominal pain with nausea and vomiting. I cannot say whether previous episodes of pain have been caused by the same problem. I did review her CT images from today's visit as well as the one from August and actually looked at images from back in 2016 as well. I think on her May imaging, there was at that time even some suggestion of a difference in the caliber of the bowel proximal and distal to the hernia, though at that time she was not complaining of obstructive symptoms. I have recommended that she remain in the hospital at least overnight nothing by mouth (n.p.o.) with some IV fluid and medications as needed. In the morning, we can see if she has had resolution of her symptoms and if so I think she could be discharged home. If she still has symptoms, then it may be prudent to conduct further testing, possibly a small bowel follow-through study, to assess the level of obstruction more fully. The patient was counseled for the plan and she desires to proceed as I have recommended. RUFUS
[2019-09-21 07:20] LABS: BLOOD UREA NITROGEN 19 MG/DL (7-18); CALCIUM LEVEL 8.2 MG/DL (8.8-10.2); CARBON DIOXIDE LEVEL 26 MEQ/L (21-32); CHLORIDE LEVEL 108 MEQ/L (98-107); CREATININE FOR GFR 0.66 MG/DL (0.55-1.30); GLOMERULAR FILTRATION RATE > 60.0 (>45); GLUCOSE, FASTING 128 MG/DL (70-100); SODIUM LEVEL 141 MEQ/L (136-145)
[2019-09-21 13:59] VITALS: BP 149/81
--- NOTE | 2019-09-21 17:45 | IPN ---
DATE: 09/21/2019 HISTORY: The patient was admitted early this morning with an episode of severe abdominal pain. This was accompanied by nausea and vomiting, but seemed to be improving when I saw her in the emergency department. She has a known supraumbilical incisional hernia with several loops of bowel protruding. She reported a history of several episodes of similar pains over the last couple years. I think it may be that this represented an episode of transient incarceration of her hernia which had improved by the time I saw her. She reports that she is feeling fine this morning with no significant pain and no nausea or vomiting. Vital signs: Show that she has been afebrile. Her pulse is in the low 80s, and her blood pressure is normal. Intake and output shows that she has had 900 of IV intake since placement on observation and has voided adequately. PHYSICAL EXAMINATION: The patient is lying quietly on the hospital bed, dozing. When roused to voice, she is alert and oriented. She denies any pain. She has active bowel sounds. There is no tympany to percussion and no tenderness to percussion. The abdomen is soft throughout without appreciable tenderness. Laboratory studies include a CBC showing a white count of 12, which is down to 15. Hemoglobin is 14 with a hematocrit of 45 and platelet count is 281,000. Differential count shows 82% neutrophils, 10% lymphocytes and 8% monocytes. Chemistry profile shows sodium 141, potassium 4.0, chloride 108, CO2 of 26, BUN of 19, creatinine 0.66 and a glucose of 128. IMPRESSION: The patient's nausea and vomiting and pain seem to have resolved. I think this is consistent with a transient incarceration of her hernia, though there may be other possible explanations. PLAN: I will start the patient on some clear liquids. If she tolerates these without any recurrence of her pain or nausea or vomiting, I will discharge her later this afternoon. She can follow up with me in the office, and we can then determine if it would be her desire to consider elective repair of her incisional hernia. RUFUS
== END 2019-09-21 18:15 | disposition home or self-care (01) ==
LOC: M ED 21:30 → M ED INP 21:31 → ENRESERV 09-21 03:59 → M MS5PR 09-21 04:55
PROVIDERS: ADMIT Surgery; ATTEND Surgery
DX: K43.6 Other and unspecified ventral hernia with obstruction, without gangrene (principal); R11.2 Nausea with vomiting, unspecified; Z85.038 Personal history of other malignant neoplasm of large intestine; Z92.3 Personal history of irradiation; Z92.21 Personal history of antineoplastic chemotherapy; E66.9 Obesity, unspecified; Z88.0 Allergy status to penicillin; Z91.048 Other nonmedicinal substance allergy status
CPT/HCPCS: 36415; 74177; 76705; 80048; 80076; 83690; 85025; 96361; 96374; 96375; 99284; J1885; J2405; Q9967

== ENCOUNTER 2019-09-22 13:18 | Inpatient (IN) | payer BC ==
[~2019-09-22] VITALS: Ht 165.1 cm; Wt 101.0 kg
[2019-09-22] MEDS ORDERED: NS 1,000 ML IV ONE (14:00)
[2019-09-22] MEDS ORDERED: ONDANSETRON 4MG/2ML VIAL (J2405) IV ONE (14:00)
[2019-09-22] MEDS ORDERED: KETOROLAC 30 MG/ML VIAL (J1885) IV ONE (14:00)
[2019-09-22 14:29] LABS: BASO % 0.3 % (0.0-1.0); HEMATOCRIT 44.6 % (36.0-47.0); HEMOGLOBIN 13.9 g/dl (12.0-15.5); LYMPH # 0.8 10^3/uL (1.5-5.0); MEAN CORPUSCULAR HEMOGLOBIN 27.1 pg (27.0-33.0); MEAN CORPUSCULAR HGB CONC 31.2 g/dl (32.0-36.5); MEAN CORPUSCULAR VOLUME 86.9 fl (80.0-96.0); MONO # 0.8 10^3/uL (0.0-0.8); MONO % 7.5 % (0.0-5.0); NEUTROPHILS # 8.8 10^3/uL (1.5-8.5); NEUTROPHILS % 83.9 % (36.0-66.0); PLATELET COUNT, AUTOMATED 249 10^3/uL (150-450); RED BLOOD COUNT 5.13 10^6/uL (4.00-5.40); WHITE BLOOD COUNT 10.4 10^3/uL (4.0-10.0)
--- NOTE | 2019-09-22 14:31 | REP ---
CT ABDOMEN AND PELVIS WITHOUT IV OR ORAL CONTRAST: HISTORY: Hernia. COMPARISON: CT study, September 20, 2019. CT FINDINGS: Preliminary dining service inspector radiograph demonstrates dilated small bowel loops in the left central abdomen. There is a tiny amount of bilateral pleural fluid. There is also minimal ascites in the upper abdomen around the liver and the spleen. There is some minimal ascites in the paracolic gutters bilaterally. This it is essentially unchanged. Parapelvic cysts are noted in the kidneys bilaterally. There is some vicarious excretion of contrast in the gallbladder lumen from the CT study done 2 days prior. No other gallbladder abnormality is observed. There are moderately dilated small bowel loops in the left midabdomen. Bowel loops are dilated up to the point of the periumbilical hernia noted previously. There is mild bowel wall thickening in the herniated small bowel loops. The distal small bowel is empty and normal in caliber distally to the hernia. A normal appendix is seen in the right lower quadrant. There is some stool in the large intestine, but no large bowel dilation is seen. The patient is status post prior left colonic resection. Postoperative changes are seen in the anterior abdominal wall including a lens-shaped soft tissue density in the subcutaneous fat in the right lower quadrant which may be hematoma seroma. This is unchanged. There is some ascites in the pelvic reflections. There is no evidence of free intraperitoneal air or abscess. IMPRESSION: Moderate to high-grade small bowel obstruction due to a periumbilical ventral hernia transmitting mid to distal small bowel loops. There is mild ascites. Small bilateral pleural effusions are noted. No evidence of free air. Findings are similar to those seen September 20, 2019. Electronically Signed by Nader Dos Santos MD 09/22/2019 03:07 P
[2019-09-22 14:53] LABS: ALT/SGPT 12 U/L (12-78); BILIRUBIN,DIRECT 0.2 MG/DL (0.0-0.2); BILIRUBIN,TOTAL 0.6 MG/DL (0.2-1.0); BLOOD UREA NITROGEN 17 MG/DL (7-18); CALCIUM LEVEL 8.1 MG/DL (8.8-10.2); CARBON DIOXIDE LEVEL 25 MEQ/L (21-32); CHLORIDE LEVEL 107 MEQ/L (98-107); CREATININE FOR GFR 0.69 MG/DL (0.55-1.30); GLOMERULAR FILTRATION RATE > 60.0 (>45); GLUCOSE, FASTING 112 MG/DL (70-100); LIPASE 56 U/L (73-393); POTASSIUM SERUM 3.9 MEQ/L (3.5-5.1); SODIUM LEVEL 140 MEQ/L (136-145); TOTAL PROTEIN 6.7 GM/DL (6.4-8.2)
[2019-09-22] MEDS ORDERED: ACETAMINOPHEN TAB 650MG DOSE (2X325MG) PO SCH (15:30)
[2019-09-22] MEDS ORDERED: MORPHINE 2 MG/ML 1ML VIAL (J2270) IV PRN (15:30)
[2019-09-22] MEDS: ENOXAPARIN 40 MG/0.4 ML SYRINGE (J1650) SC SCH (16:48)
[2019-09-22] MEDS: LR 1,000 ML IV SCH ×2 (16:48→23:30)
[2019-09-22] MEDS: ACETAMINOPHEN TAB 650MG DOSE (2X325MG) PO SCH ×3 (17:00→23:30)
[2019-09-22] MEDS ORDERED: ONDANSETRON 4MG/2ML VIAL (J2405) IV PRN (20:00)
[2019-09-22] MEDS: SENOKOT S TAB PO SCH (21:04)
[2019-09-22 22:00] VITALS: BP 125/67
[2019-09-23] MEDS: ACETAMINOPHEN TAB 650MG DOSE (2X325MG) PO SCH ×5 (04:10→20:41)
[2019-09-23 06:00] VITALS: BP 123/69
[2019-09-23] MEDS: LR 1,000 ML IV SCH ×3 (06:36→21:05)
[2019-09-23 06:59] LABS: BASO % 0.6 % (0.0-1.0); EOS # 0.1 10^3/uL (0.0-0.5); EOS % 1.7 % (0.0-3.0); HEMATOCRIT 38.9 % (36.0-47.0); HEMOGLOBIN 12.4 g/dl (12.0-15.5); LYMPH # 1.3 10^3/uL (1.5-5.0); LYMPH % 18.5 % (24.0-44.0); MEAN CORPUSCULAR HEMOGLOBIN 27.6 pg (27.0-33.0); MEAN CORPUSCULAR HGB CONC 31.9 g/dl (32.0-36.5); MEAN CORPUSCULAR VOLUME 86.4 fl (80.0-96.0); MONO # 0.8 10^3/uL (0.0-0.8); MONO % 11.8 % (0.0-5.0); NEUTROPHILS # 4.8 10^3/uL (1.5-8.5); PLATELET COUNT, AUTOMATED 226 10^3/uL (150-450); WHITE BLOOD COUNT 7.1 10^3/uL (4.0-10.0)
[2019-09-23 07:14] LABS: BLOOD UREA NITROGEN 21 MG/DL (7-18); CALCIUM LEVEL 7.7 MG/DL (8.8-10.2); CARBON DIOXIDE LEVEL 26 MEQ/L (21-32); CHLORIDE LEVEL 109 MEQ/L (98-107); CREATININE FOR GFR 0.54 MG/DL (0.55-1.30); GLOMERULAR FILTRATION RATE > 60.0 (>45); GLUCOSE, FASTING 68 MG/DL (70-100); POTASSIUM SERUM 3.7 MEQ/L (3.5-5.1); SODIUM LEVEL 143 MEQ/L (136-145)
[2019-09-23] MEDS: SENOKOT S TAB PO SCH ×2 (09:00→20:38)
[2019-09-23] MEDS: ENOXAPARIN 40 MG/0.4 ML SYRINGE (J1650) SC SCH (09:00)
[2019-09-23] MEDS: PANTOPRAZOLE 40MG INJ (PROTONIX) (C9113) IV SCH (09:18)
--- NOTE | 2019-09-23 11:25 | HPEPDOC ---
General Surgery H&P Date of Admission Sep 22, 2019 Attending Physician: MELISA MONSIVAIS MD History and Physical CHIEF COMPLAINT: abdominal pain and vomiting HISTORY OF PRESENT ILLNESS: Patient returns to the emergency room after being discharged home yesterday after a 24-hour period of observation in the hospital from evening until Tuesday. She was admitted then for what was suspected to be small bowel obstruction related to possible transient incarceration of her bowels into a site of a known incisional hernia at the midline above her umbilicus. Referred to the details of the history and physical examination during that admission. After being sent home, patient reports she was feeling well Tuesday evening but on Tuesday when she woke up she was again started having crampy abdominal pain and started vomiting prompting her to return to the emergency room. In the emergency room a repeat CT shows evidence for moderate to high-grade obstruction with a loop of bowel herniating through the incisional hernia which appears distended. Patient reports at least 4 or 5 episodes of might be related to transient obstruction related to her incisional hernia. She was in the emergency room back in May with a CT of abdomen and pelvis. This documents presence of the hernia and possibly incarceration or transient incarceration. She followed up with her prior surgeon, Dr. Rowley and was decided to watch and wait whether she will continue to be symptomatic. ALLERGIES: Please see below. HOME MEDICATIONS: Please see below. PAST MEDICAL HISTORY: 1. History of rectal cancer diagnosed in 2013. She underwent neoadjuvant chemoradiation followed by surgery with diverting ileostomy and she completed adjuvant chemotherapy afterwards her ileostomy was reversed. 2. Morbid obesity with a BMI of 37. PAST SURGICAL HISTORY: 1. As above though anterior resection and ileostomy and subsequent reversal of ileostomy 2. Incisional hernia repair in 2016 3. Bilateral carpal tunnel release 4 tubal ligation in 1 5. Surgery on her toe 6. [id number] placement. . PERSONAL/SOCIAL HISTORY: Denies smoking, alcohol use, or recreational drug use. REVIEW OF SYSTEMS: GENERAL: Denies chills, fatigue, fever, weight gain and weight loss. HEENT: Denies blurred vision and double vision. Denies ear symptoms. Denies hoarseness. NECK: Denies any neck pain. CARDIOVASCULAR: Denies chest pain and palpitations. MUSCULOSKELETAL: Denies arthralgias, back pain and thrombophlebitis. SKIN: Denies rash. NEUROLOGIC: Denies headache, stroke and transient ischemic attack. PSYCHIATRIC: Denies anxiety and depression. ENDOCRINE: Denies thyroid disease. HEMATOLOGY/ONCOLOGY: Denies any bleeding or clotting disorder. She is not on any anticoagulant HEART: Denies any chest pains, palpitations, paroxysmal dyspnea, orthopnea. PULMONARY: Denies chronic cough, dyspnea and wheezing. GASTROINTESTINAL: She is significant history for rectal cancer status post treatment as described above. She follows up with oncology twice a year. Last follow-up with him was back in June. She also reports that she is seen by her colorectal surgeon back in June last year. GENITOURINARY: Denies dysuria, frequency, hematuria and nocturia. ENDOCRINE: Denies polydipsia, polyphagia, polyuria, heat or cold intolerance. INFECTIOUS: Denies any recent upper respiratory tract infection, UTI, need for use of antibiotics. NUTRITION: Reports good appetite. PHYSICAL EXAMINATION: VITAL SIGNS: Please see below. GENERAL APPEARANCE: Patient seen at bedside, appears relatively comfortable. Awake, alert, oriented. HEENT: Normocephalic, she has a nasogastric tube in place which was placed in the emergency room and overnight has drained about a liter of enteric contents. Enteric contents appear brownish coffee ground color. She reports discomfort related to the presence of the nasogastric tube CHEST: No chest wall abnormalities. Normal respiratory motion/effort. NECK: Supple. No thyromegaly. No lymphadenopathies. LUNGS: Lung sounds are clear to auscultation bilaterally. No wheezing appreciated. HEART: No chest wall abnormalities. Heart rate and rhythm are regular with no murmurs. ABDOMEN: Abdomen is obese, soft, slightly rounded. She has a midline incision extending from the pubis to several centimeters above the umbilicus. The incisional hernia is located above the umbilicus roughly is an area about 4 x 3 cm. The overlying skin appears slightly thinned out. There is mild prominence but not overt bulging when she is laying flat. The area of the hernia is soft. She does report some mild vague tenderness on palpation but no focal tenderness that I could perceive nor any rebound or guarding. She is nontender in all parts of her abdomen. She also has a small right paramedian incision from her previous ileostomy. SKIN: Warm, moist. EXTREMITIES: Extremities have no deformities. No edema identified. NEUROLOGICAL: . ANCILLARIES: . LABORATORY DATA: Please see below. MICROBIOLOGY: Please see below. IMAGING: CT abdomen and pelvis Moderate to high-grade small bowel obstruction due to a periumbilical ventral hernia transmitting mid to distal small bowel loops. There is mild ascites. Small bilateral pleural effusions are noted. No evidence of free air. Findings are similar to those seen September 20, 2019. IMPRESSION AND PLAN: small bowel obstruction incisional hernia (midline) Patient has recurrent obstruction related to her incisional hernia though this is not the typical incarcerated type of hernia as the hernia site is actually soft so she may have some adhesions at or close to the hernia that is causing the obstruction. I think it maybe prudent to deal with the adhesions and the hernia during this admission. For now she feels better with the nasogastric tube decompression. She seems to be adequately hydrated this point. I will continue to follow the course and most likely try to find time to accommodate a diagnostic laparoscopy and repair of her hernia if the are able to continue to d ecompress her to allow us to get space to perform the surgery. Vital Signs Vital Signs Date Time Temp Pulse Resp B/P (MAP) Pulse Ox O2 Delivery O2 Flow Rate FiO2 09/23/19 06:00 98.2 77 18 123/69 (87) 93 Room Air I&Os I&O- Last 24 Hours up to 6 AM 09/23/19 06:00 Intake Total 2250 ml Output Total 1500 ml Balance 750 ml Laboratory Data Labs 24H Laboratory Tests 2 09/22/19 14:12: Immature Granulocyte % (Auto) 0.3, Neutrophils (%) (Auto) 83.9H, Lymphocytes (%) (Auto) 8.0L, Monocytes (%) (Auto) 7.5H, Eosinophils (%) (Auto) 0.0, Basophils (%) (Auto) 0.3, Neutrophils # (Auto) 8.8H, Lymphocytes # (Auto) 0.8L, Monocytes # (Auto) 0.8, Eosinophils # (Auto) 0.0, Basophils # (Auto) 0.0, Nucleated Red Blood Cells % (auto) 0.0, Anion Gap 8, Glomerular Filtration Rate > 60.0, Calcium Level 8.1L, Total Bilirubin 0.6, Direct Bilirubin 0.2, Aspartate Amino Transf (AST/SGOT) 9, Alanine Aminotransferase (ALT/SGPT) 12, Alkaline Phosphatase 77, Total Protein 6.7, Albumin 3.0L, Albumin/Globulin Ratio 0.81L, Lipase 56L 09/23/19 06:29: Immature Granulocyte % (Auto) 0.4, Neutrophils (%) (Auto) 67.0H, Lymphocytes (%) (Auto) 18.5L, Monocytes (%) (Auto) 11.8H, Eosinophils (%) (Auto) 1.7, Basophils (%) (Auto) 0.6, Neutrophils # (Auto) 4.8, Lymphocytes # (Auto) 1.3L, Monocytes # (Auto) 0.8, Eosinophils # (Auto) 0.1, Basophils # (Auto) 0.0, Nucleated Red Blood Cells % (auto) 0.0, Anion Gap 8, Glomerular Filtration Rate > 60.0, Calcium Level 7.7L CBC/BMP Laboratory Tests 09/22/19 14:12 09/23/19 06:29 Home Medications No Active Prescriptions or Reported Meds Allergies Coded Allergies: Penicillins (Verified Allergy, Intermediate, HIVES, 05/19/19) bacitracin (Verified Allergy, Intermediate, HIVES, 05/19/19) neomycin (Verified Allergy, Intermediate, HIVES, 05/19/19) polymyxin B (Verified Allergy, Intermediate, HIVES, 05/19/19) TAPE (Verified Allergy, Unknown, 05/19/19) A-FIB/CHADSVASC A-FIB History Current/History of A-Fib/PAF?: No Current PO Anticoag Therapy: No MELISA MONSIVAIS MD Sep 23, 2019 10:53
[2019-09-23 14:00] VITALS: BP 123/53
[2019-09-23 19:13] VITALS: BP 110/63
[2019-09-23] MEDS: KETOROLAC 30 MG/ML VIAL (J1885) IV PRN (20:38)
[2019-09-24] MEDS: ACETAMINOPHEN TAB 650MG DOSE (2X325MG) PO SCH ×6 (00:08→21:56)
[2019-09-24] MEDS: KETOROLAC 30 MG/ML VIAL (J1885) IV PRN ×3 (04:06→22:49)
[2019-09-24] MEDS: LR 1,000 ML IV SCH ×3 (04:06→22:31)
[2019-09-24 04:50] VITALS: BP 135/76
[2019-09-24 06:27] LABS: BASO % 0.4 % (0.0-1.0); EOS # 0.1 10^3/uL (0.0-0.5); EOS % 1.9 % (0.0-3.0); HEMATOCRIT 38.3 % (36.0-47.0); HEMOGLOBIN 12.2 g/dl (12.0-15.5); LYMPH # 1.2 10^3/uL (1.5-5.0); MEAN CORPUSCULAR HEMOGLOBIN 27.6 pg (27.0-33.0); MEAN CORPUSCULAR HGB CONC 31.9 g/dl (32.0-36.5); MEAN CORPUSCULAR VOLUME 86.7 fl (80.0-96.0); MONO # 0.7 10^3/uL (0.0-0.8); MONO % 9.9 % (0.0-5.0); NEUTROPHILS # 5.2 10^3/uL (1.5-8.5); NEUTROPHILS % 71.4 % (36.0-66.0); PLATELET COUNT, AUTOMATED 220 10^3/uL (150-450); RED BLOOD COUNT 4.42 10^6/uL (4.00-5.40); WHITE BLOOD COUNT 7.3 10^3/uL (4.0-10.0)
[2019-09-24 07:08] LABS: BLOOD UREA NITROGEN 21 MG/DL (7-18); CALCIUM LEVEL 7.7 MG/DL (8.8-10.2); CARBON DIOXIDE LEVEL 24 MEQ/L (21-32); CHLORIDE LEVEL 109 MEQ/L (98-107); CREATININE FOR GFR 0.51 MG/DL (0.55-1.30); GLOMERULAR FILTRATION RATE > 60.0 (>45); GLUCOSE, FASTING 51 MG/DL (70-100); POTASSIUM SERUM 3.6 MEQ/L (3.5-5.1); SODIUM LEVEL 142 MEQ/L (136-145)
--- NOTE | 2019-09-24 08:26 | REP ---
Abdomen series: Four views. History: Followup small bowel obstruction. Comparison study December 15, 2018. Comparison is made with CT exam September 22, 2019. Findings: Chest x-ray is compared with the December 15, 2018 study. Nasogastric tube is seen entering the left upper quadrant of the abdomen. Heart is mildly prominent in size unchanged. There is plate-like atelectasis in the right base. Slight blunting of the left lateral pleural angle is seen. No free subdiaphragmatic air is seen. Supine and erect views of the abdomen demonstrate improvement of the bowel gas pattern in the interval since the September 22, 2019 CT study. There are suture lines in the pelvis and tubal ligation bands are visible in the pelvis. There are some small bowel loops in the right midabdomen and colonic gas is seen in the descending colon. Impression: Improved bowel gas pattern. NG tube in place. Electronically Signed by Nader Dos Santos MD 09/24/2019 10:58 A
[2019-09-24] MEDS: ENOXAPARIN 40 MG/0.4 ML SYRINGE (J1650) SC SCH (09:00)
[2019-09-24] MEDS: SENOKOT S TAB PO SCH ×2 (10:20→21:56)
[2019-09-24] MEDS: PANTOPRAZOLE 40MG INJ (PROTONIX) (C9113) IV SCH (10:20)
--- NOTE | 2019-09-24 11:16 | IPNPDOC ---
Text Note Date of Service The patient was seen on 09/24/19. NOTE Patient is feeling better. She denies any nausea, vomiting, abdominal cramping. She remains to have NG tube in place. Our output has been decreasing. She has had 3 bowel movements yesterday. Vital signs reviewed, stable On examination she is lying flat in bed. She appears very comfortable. The nasogastric tube was a small amount of brownish coffee-ground drainage Clear breath sounds auscultation bilaterally with no wheezing She has regular heart rate and rhythm. Abdomen is obese, still somewhat mildly distended. The site of the hernia above the umbilicus is soft with no noticeable outward protrusion. No signs of incarceration at this area. She is nontender over the area of the hernia. Skin overlying the area is somewhat mildly thinned out. She is nontender in all q uadrants of the abdomen. No extremity edema Impression: Small bowel obstruction May be a transient incarceration of her incisional hernia promoting the bowel obstruction Patient has improved with nasogastric tube decompression. We have tried to previously send her home for an elective hernia repair and she came back promptly within a day. She is scheduled for diagnostic laparoscopy and repair of her hernia. The da Saleem robot tower is available for us to use today and we will use that for the hernia repair. I'm not exactly sure whether there is transient incarceration that she always remains soft at the site of the hernia and there may be just the internal adhesions that is causing her obstruction. My other concern is the presence of ascites and multiple imaging especially given the significant history for prior rectal cancer. She does follow up with her oncologist regularly at least twice a year. I discussed with the patient my concerns and details of the planned procedure including the risks and benefits. Consent has been obtained from the patient. Further recommendations after the surgery depending on findings. VS,Fishbone, I+O VS, Fishbone, I+O Laboratory Tests 09/24/19 05:46 Vital Signs Date Time Temp Pulse Resp B/P (MAP) Pulse Ox O2 Delivery O2 Flow Rate FiO2 09/24/19 04:50 98.8 72 18 135/76 (95) 94 Room Air l I&O- Last 24 Hours up to 6 AM 09/24/19 06:00 Intake Total 2160 ml Output Total 2100 ml Balance 60 ml MELISA MONSIVAIS MD Sep 24, 2019 11:16
[2019-09-24 12:05] VITALS: BP 138/75
[2019-09-24] MEDS ORDERED: LIDOCAINE 1% SDV INJ 30 ML VIAL As Ordered ONE (13:02)
[2019-09-24] MEDS ORDERED: BUPIVACAINE LIPOSOME/PF 1.3% 20ML VIAL (13.3MG/ML)(EXPAREL)(C9290 PER1MG) As Ordered ONE (13:02)
[2019-09-24] MEDS ORDERED: BUPIVACAINE HCL 0.25% 30 ML VIAL As Ordered ONE (13:02)
[2019-09-24] MEDS ORDERED: LevoFLOXacin(LEVAQUIN)500 MG/100 ML BAG (J1956) As Ordered ONE (13:42)
[2019-09-24] MEDS ORDERED: MIDAZOLAM INJ 2 MG/2 ML VIAL (J2250) As Ordered ONE (14:11)
[2019-09-24] MEDS ORDERED: LIDOCAINE 2% INJ 100 MG/5 ML SDV (FOR ANES.) As Ordered ONE (14:11)
[2019-09-24] MEDS ORDERED: ONDANSETRON 4MG/2ML VIAL (J2405) As Ordered ONE (14:11)
[2019-09-24] MEDS ORDERED: ROCURONIUM BROMIDE 50 MG/5 ML VIAL As Ordered ONE ×3 (14:11→16:31)
[2019-09-24] MEDS ORDERED: PHENYLephrine HCL 500 MCG/5 ML (100MCG/ML) SYRINGE (J2370) As Ordered ONE (14:11)
[2019-09-24] MEDS ORDERED: LACRILUBE (AKWA TEARS) OPHTH OINT 3.5 GM As Ordered ONE (14:11)
[2019-09-24] MEDS ORDERED: ePHEDrine SULFATE 25 MG/5 ML(5MG/ML) SYRINGE As Ordered ONE (14:11)
[2019-09-24] MEDS ORDERED: fentaNYL 250 MCG/5 ML INJECTION (J3010) As Ordered ONE (14:11)
[2019-09-24] MEDS ORDERED: SUCCINYLCHOLINE 100 MG/5 ML SYRINGE (J0330) As Ordered ONE (14:11)
[2019-09-24] MEDS ORDERED: dexameTHASONE 4 MG/ML 1ML VIAL (J1100) As Ordered ONE (14:11)
[2019-09-24] MEDS ORDERED: ACETAMINOPHEN 1000MG 100ML IV BTL (OFIRMEV) (J0131 PER 10MG) As Ordered ONE (14:11)
[2019-09-24] MEDS ORDERED: propofoL 200 MG/20 ML VIAL As Ordered ONE (14:11)
[2019-09-24] MEDS ORDERED: SUGAMMADEX SODIUM 500 MG/5 ML VIAL (BRIDION) As Ordered ONE (14:48)
[2019-09-24] MEDS ORDERED: KETOROLAC 60 MG/2 ML VIAL (J1885) As Ordered ONE (14:49)
[2019-09-24] MEDS ORDERED: fentaNYL 100 MCG/2 ML INJECTION (J3010) As Ordered ONE ×2 (16:07→18:38)
[2019-09-24] MEDS: fentaNYL 100 MCG/2 ML INJECTION (J3010) IV PRN ×4 (18:40→18:55)
[2019-09-24] MEDS ORDERED: PERCOCET 5MG/325MG TAB PO PRN ×2 (18:45)
[2019-09-24] MEDS ORDERED: METOCLOPRAMIDE INJ 10MG/2ML VIAL (J2765) IV PRN (19:00)
[2019-09-24] MEDS ORDERED: LR 1,000 ML IV SCH (19:00)
[2019-09-24] MEDS ORDERED: ONDANSETRON 4MG/2ML VIAL (J2405) IV PRN (19:00)
[2019-09-24 19:46] VITALS: BP 133/76
[2019-09-24 20:35] VITALS: BP 150/85
[2019-09-24 21:35] VITALS: BP 149/79
[2019-09-24] MEDS: ALVIMOPAN 12 MG CAPSULE (ENTEREG) PO SCH (21:53)
[2019-09-24 22:37] VITALS: BP 166/84
[2019-09-25] VITALS (7 sets, daily range): BP systolic 134–157; BP diastolic 56–92; O2SAT 96
[2019-09-25] MEDS: ACETAMINOPHEN TAB 650MG DOSE (2X325MG) PO SCH ×6 (00:40→20:32)
--- NOTE | 2019-09-25 02:38 | ROOPDOC ---
[facility] Report Of Operation Report of Operation DATE OF PROCEDURE: 09/24/19 PREPROCEDURE DIAGNOSES: small bowel obstruction, incarcerated incisional hernia. POSTPROCEDURE DIAGNOSES: small bowel obstruction from incarcerated incisonal hernia. PROCEDURE: Robotic assisted laparoscopic lysis of adhesion, release of bowel obstruction, incisional hernia repair (IPOM plus 15x 10 cms ventralight mesh). SURGEON: Darius Quintanilla MD [employer] ARTILLERY: ANESTHESIA: General Anesthesia. ESTIMATED BLOOD LOSS: Approximately 40 mL. COMPLICATIONS: none. REMARKS: 63 F with history of rectal cancer s/p LAR with ileostomy and subsequent reversal, open repair of ileostomy site hernia now with bowel obstruction relation to a midline supraumbilical incisional hernia (5x4 cms on CT) not fully resolved with conservative therapy. PROCEDURE NOTE: multiple areas of bowel adhesion to the abdominal wall and partly previous IPOM hernia mesh at the right lower quadrant. Incarcerated loop of bowel inside of the supraumbilical hernia. A small serosal thinning noted after ALBERT with reinforcement with 3-0 vicryl. IPOM plus repair of 5x4 cms supraumbilical incisional hernia with 15 x 10 cms ventralight coated mesh. DESCRIPTION OF PROCEDURE: Patient was given a dose of Levaquin 500 mg IV IV preoperatively for wound prophylaxis. She was brought to the operating room and placed supine on the table. Compression boots and teds stockings were placed on both lower extremities for DVT prophylaxis. General endotracheal anesthesia was administered without any complication. Her left arm was tucked, the right arm placed on an arm board. All bony prominences were padded. A Brandt catheter was placed. The abdomen was prepped from xiphoid to pubis and table to table with chlorhexidine. The patient was draped in the usual sterile fashion.Timeout were performed using both preinduction and pre-incision safety checklist to verify correct patient, procedure site and additional clinical information prior to beginning the procedure. Entry into the abdomen done through a small incision on the left upper quadrant subcostal area area. The fascia was elevated and Veress needle inserted in a controlled fashion. Proper position was confirmed with a saline drop test. The abdomen was insufflated to a pressure of 15 mmHg. using the same incision a 5 mm optical port was placed under direct vision of laparoscope. Initial diagnostic laparoscopy was performed. Much of the area of the hernia is covered with omentum. There were visible loops of small bowel adhered to the lower abdominal wall. The small bowel itself does not look overly distended. She was placed in a slight right lateral decubitus position to gain more space on the left lateral abdominal wall. An approximately at the anterior axillary line 38 mm robotic ports were placed 8-10 cm apart under direct vision. The da Saleem robot tower was maneuvered in place to center on the patient's hernia. The trochars were docked onto the robot arms with a forced bipolar forceps on the left lower quadrant port a 30 camera facing upwards on the middle port and a robotic cutting scissors connected to a monopolar cautery on the upper port. Positioning of the tower and robotic arms were inspected and once satisfied, I scrubbed out and took control of the robotic arms and camera at the surgeon's console. The omental adhesions to the anterior abdominal wall was sharply taken down. This reveals presence of the supraumbilical hernia. Initially this was containing loops of bowel which was reduced back in the abdomen. There was some clear serous fluid that came out through the reduction of the bowel. There are 2 loops of bowel remaining that still is adhered to the lateral side of the hernia defect broadly. There are several more loops of bowel adhered at around the midline on the lower abdomen. There was some scattered Somali cheese shallow defects at the lower midline that was not apparent on external examination and on CT. There were several more adhered omentum over the right lateral abdominal wall. To better define the extent of adhesions I started working first on the omental adhesions. Taking this down the began defining the extent of the previous mesh. I then continued to work on the remaining incarcerated loops of bowel on the lateral lower side of the hernia. I slowly and meticulously lysed this sharply with the scissors without the use of cautery. I was slowly able to develop the plane between the abdominal wall hernia and the loop of bowel. It seems that the bowel was caught up in a smaller chamber of this multilevel loculated covering his hernia defect. Once this was better defined and was able to come around the bowel and freed this up. After freeing the bowel I examined this. There may be a small serosal tear with the dissection and I repaired this with 3-0 Vicryl in an interrupted fashion. I continued running the bowel which was further adhered to the lower abdominal wall out of the hernia itself. Continued to free up several more loops of bowel coming into the pelvis to free up the abdominal wall around the hernia. I was able to free up eventually all visible bowels adhered to the anterior abdominal and lateral abdominal wall. The mesh is located laterally slightly folded where the lower part of the hernia is located but well incorporated laterally out of the hernia. Also to gain space superiorly I took down the falciform ligament. The lysis of adhesions portion took more than 2 hours. After preparing the anterior abdominal wall I mesh with the hernia defect. This measures 5 x 4 cm. There are internal septations inside of the hernia defect. She does not have much diastases. As mentioned part of the previous mesh that was used to repair the ileostomy site is slightly folded and coming into the lower portion of the hernia defect. I left the mesh in place. I have a good 8 cm freed around the hernia defect. I then closed the hernia defect using 0V LOC, nonabsorbable placing one on the lower edge and the other on the upper edge. Slowly decreasing the abdominal pressure as much as down to 7 mmHg wall slowly cinching on the suture to close the abdominal defect and also incorporating the hernia sac to the closure to hopefully prevent seroma formation. After closure of the abdominal wall defect a slowly came up to the abdominal pressure to 10 mmHg for placement of mesh. I chose a 15 x 10 cm ventral light mesh with echo positioning device. I scrubbed back in and upsized the upper port to a 12 mm port for placement of the mesh intra-abdominally. The mesh was placed and positioned centered on the hernia repair site. A Jarad- Sangeeta device was then passed at the center of the hernia defect to retrieve the catheter and the balloon was insufflated to maintain positioning of the mesh. I scrubbed out once more and returned to the surgeon's console. I used an 8 inch 20V LOC 180 circumferentially suture the mesh to the abdominal wall at 10 mmHg pressure. After removal of the balloon I extended the circumferential suture to the center of the mesh further suturing it to the abdominal wall. The mesh at the end properly placed in the flat on the abdominal wall. I then inspected for bleeding and when satisfied I switched the camera to look into the abdominal cavity and checked the omentum and bowels for bleeding or injury. Once satisfied I scrubbed back in. The trochars were undocked from the robotic tower and the robotic toe removed from the surgical field. The 12 mm port site and left upper quadrant was closed using the Jarad-Sangeeta device with 0 Vicryl. The abdomen was deflated. The ports were removed. The skin incisions were closed with 4-0 Monocryl in a subcuticular fashion. Dermabond was used for dressing. Patient tolerated the procedure well. She was awakened, extubated. Her Brandt catheter was removed. Her Brandt catheter was removed. She was brought to the recovery room stable DARIUS QUINTANILLA MD Sep 25, 2019 02:38
[2019-09-25] MEDS: LR 1,000 ML IV SCH (05:37)
[2019-09-25] MEDS: KETOROLAC 30 MG/ML VIAL (J1885) IV PRN ×2 (05:44→13:30)
[2019-09-25 06:32] LABS: BASO % 0.1 % (0.0-1.0); EOS % 0.2 % (0.0-3.0); HEMATOCRIT 36.9 % (36.0-47.0); HEMOGLOBIN 11.6 g/dl (12.0-15.5); LYMPH # 1.4 10^3/uL (1.5-5.0); LYMPH % 14.2 % (24.0-44.0); MEAN CORPUSCULAR HEMOGLOBIN 27.3 pg (27.0-33.0); MEAN CORPUSCULAR HGB CONC 31.4 g/dl (32.0-36.5); MEAN CORPUSCULAR VOLUME 86.8 fl (80.0-96.0); MONO # 1.1 10^3/uL (0.0-0.8); MONO % 11.4 % (0.0-5.0); NEUTROPHILS # 7.2 10^3/uL (1.5-8.5); NEUTROPHILS % 73.7 % (36.0-66.0); PLATELET COUNT, AUTOMATED 225 10^3/uL (150-450); RED BLOOD COUNT 4.25 10^6/uL (4.00-5.40); WHITE BLOOD COUNT 9.7 10^3/uL (4.0-10.0)
--- NOTE | 2019-09-25 06:53 | ECGEPIP ---
[facility] Test Date: 2019-09-24 Pat Name: CHELY BATISTA Department: Room: [place] [address] Gender: Female [employer] Manager: BLAYNE : 1955 Requested By: Vasyl Patel Order Number: [id number] Reading MD: Kenrick Cary Measurements Intervals [place] Rate: 73 P: 59 SD: 128 QRS: 14 QRSD: 101 T: -8 QT: 428 QTc: 472 Interpretive Statements Normal sinus rhythm with sinus arrhythmia Nonspecific ST-T wave abnormalities Compared to prior tracing of 03/18/2018, there is less ectopy Electronically Signed on 09-25-2019 6:53:33 EST by Kenrick Cary
[2019-09-25 07:01] LABS: BLOOD UREA NITROGEN 12 MG/DL (7-18); CALCIUM LEVEL 7.6 MG/DL (8.8-10.2); CARBON DIOXIDE LEVEL 27 MEQ/L (21-32); CHLORIDE LEVEL 105 MEQ/L (98-107); CREATININE FOR GFR 0.51 MG/DL (0.55-1.30); GLOMERULAR FILTRATION RATE > 60.0 (>45); GLUCOSE, FASTING 90 MG/DL (70-100); POTASSIUM SERUM 3.6 MEQ/L (3.5-5.1); SODIUM LEVEL 139 MEQ/L (136-145)
[2019-09-25] MEDS: ENOXAPARIN 40 MG/0.4 ML SYRINGE (J1650) SC SCH (08:51)
[2019-09-25] MEDS: SENOKOT S TAB PO SCH ×2 (08:51→20:32)
[2019-09-25] MEDS: ALVIMOPAN 12 MG CAPSULE (ENTEREG) PO SCH ×2 (08:51→20:32)
[2019-09-25] MEDS: PANTOPRAZOLE 40MG INJ (PROTONIX) (C9113) IV SCH (08:51)
--- NOTE | 2019-09-25 09:04 | IPNPDOC ---
Text Note Date of Service The patient was seen on 09/25/19. NOTE POD1 robotic assisted laparoscopic lysis of adhesion, repair of incarcerated hernia. She reports she had a good night. Denies any nausea or vomiting. She has mild discomfort at the port sites with otherwise is feeling comfortable. Postoperative vital signs were reviewed and they are stable. She was asleep when I came in she. She looked comfortable on waking up. Lungs sounds are clear to auscultation bilaterally no wheezing. Her saturations are 98% on 2 L nasal cannula She has regular heart rate and rhythm. Abdomen still looks mildly distended. Soft. No noticeable excessive hematoma or seroma at the hernia repair site as well as the port sites. She has 3 left lateral port sites and a left subcostal 5 mm port site. She has no complaints. Minimally tender around the supraumbilical incisional hernia repair site. Hypoactive bowel sounds. No extremity edema Impression and plans Small bowel obstruction related to incarcerated incisional hernia postop day 1 status post release of bowel obstruction with lysis of adhesion and repair of said hernia. I will allow her clear liquids today and see how she does possibly advances if she is really doing well. She still looks distended today instructed her to ambulate to the hallways. We'll cut down on the IV fluids. I'll allow her clear liquids. VS,Fishbone, I+O VS, Fishbone, I+O Laboratory Tests 09/25/19 06:10 Vital Signs Date Time Temp Pulse Resp B/P (MAP) Pulse Ox O2 Delivery O2 Flow Rate FiO2 09/25/19 02:00 98.6 75 18 157/92 (113) 98 Nasal Cannula 1.0 I&O- Last 24 Hours up to 6 AM 09/25/19 06:00 Intake Total 2235 ml Output Total 1240 ml Balance 995 ml MELISA MONSIVAIS MD Sep 25, 2019 06:51
[2019-09-25] MEDS ORDERED: MOM 30ML SUSPENSION UDC PO ONE (14:15)
[2019-09-26] MEDS: ACETAMINOPHEN TAB 650MG DOSE (2X325MG) PO SCH ×6 (01:39→21:25)
[2019-09-26] MEDS: KETOROLAC 30 MG/ML VIAL (J1885) IV PRN (04:15)
[2019-09-26 06:00] VITALS: BP 125/84
[2019-09-26 06:17] LABS: BASO % 0.4 % (0.0-1.0); EOS # 0.3 10^3/uL (0.0-0.5); EOS % 3.1 % (0.0-3.0); HEMOGLOBIN 11.4 g/dl (12.0-15.5); LYMPH # 1.2 10^3/uL (1.5-5.0); LYMPH % 12.3 % (24.0-44.0); MEAN CORPUSCULAR HEMOGLOBIN 27.8 pg (27.0-33.0); MEAN CORPUSCULAR HGB CONC 32.6 g/dl (32.0-36.5); MEAN CORPUSCULAR VOLUME 85.4 fl (80.0-96.0); MONO % 10.4 % (0.0-5.0); NEUTROPHILS # 7.3 10^3/uL (1.5-8.5); NEUTROPHILS % 73.4 % (36.0-66.0); PLATELET COUNT, AUTOMATED 205 10^3/uL (150-450); WHITE BLOOD COUNT 9.9 10^3/uL (4.0-10.0)
[2019-09-26 06:45] LABS: BLOOD UREA NITROGEN 8 MG/DL (7-18); CALCIUM LEVEL 7.7 MG/DL (8.8-10.2); CARBON DIOXIDE LEVEL 30 MEQ/L (21-32); CHLORIDE LEVEL 106 MEQ/L (98-107); CREATININE FOR GFR 0.47 MG/DL (0.55-1.30); GLOMERULAR FILTRATION RATE > 60.0 (>45); GLUCOSE, FASTING 94 MG/DL (70-100); POTASSIUM SERUM 3.5 MEQ/L (3.5-5.1); SODIUM LEVEL 141 MEQ/L (136-145)
[2019-09-26] MEDS: ALVIMOPAN 12 MG CAPSULE (ENTEREG) PO SCH ×2 (10:00→21:24)
[2019-09-26] MEDS: PANTOPRAZOLE 40MG INJ (PROTONIX) (C9113) IV SCH (10:00)
[2019-09-26] MEDS: ENOXAPARIN 40 MG/0.4 ML SYRINGE (J1650) SC SCH (10:01)
[2019-09-26] MEDS: SENOKOT S TAB PO SCH ×2 (10:01→21:24)
[2019-09-26] MEDS ORDERED: CelecoXIB (CeleBREX) 100 MG CAP PO PRN (10:30)
--- NOTE | 2019-09-26 10:36 | IPNPDOC ---
Text Note Date of Service The patient was seen on 09/26/19. NOTE POD2 robotic assisted laparoscopic lysis of adhesion, repair of incarcerated hernia. She looks comfortable, intermittent flatus, had some stool leakage last night but not a real bm yet. Postoperative vital signs were reviewed and they are stable. She is ambulating in the room independently. She looked comfortable on waking up. Lungs sounds are clear to auscultation bilaterally no wheezing. Her saturations are 98% on room air. She has regular heart rate and rhythm. Abdomen still looks mildly distended. Soft. No noticeable excessive hematoma or seroma at the hernia repair site as well as the port sites. She has 3 left lateral port sites and a left subcostal 5 mm port site. She has no complaints. Minimally tender around the supraumbilical incisional hernia repair site. Hypoactive bowel sounds. No extremity edema Impression and plans Small bowel obstruction related to incarcerated incisional hernia postop day 1 status post release of bowel obstruction with lysis of adhesion and repair of said hernia. I have advanced her diet to regular solid food. She is still a bit concerned as she has not had a bm yet. I will give her a dose of miralax. I have instructed her to continue try increasing her activity level. If she tolerates regular food today most likely would be able to go home tomorrow. VS,[place], I+O VS, Fishbone, I+O Laboratory Tests 09/26/19 05:37 09/26/19 05:38 Vital Signs Date Time Temp Pulse Resp B/P (MAP) Pulse Ox O2 Delivery O2 Flow Rate FiO2 09/26/19 06:00 98.0 64 18 125/84 (98) 95 Room Air 09/25/19 10:38 95 09/25/19 06:00 1.0 I&O- Last 24 Hours up to 6 AM 09/26/19 06:00 Intake Total 510 ml Output Total 1150 ml Balance -640 ml MELISA MONSIVAIS MD Sep 26, 2019 10:36
[2019-09-26 22:00] VITALS: BP 137/77
[2019-09-27] MEDS: ACETAMINOPHEN TAB 650MG DOSE (2X325MG) PO SCH ×4 (01:25→14:01)
[2019-09-27 06:00] VITALS: BP 134/78
[2019-09-27 07:02] LABS: BASO % 0.4 % (0.0-1.0); EOS # 0.7 10^3/uL (0.0-0.5); EOS % 8.7 % (0.0-3.0); HEMATOCRIT 37.3 % (36.0-47.0); HEMOGLOBIN 12.1 g/dl (12.0-15.5); LYMPH # 1.4 10^3/uL (1.5-5.0); LYMPH % 17.2 % (24.0-44.0); MEAN CORPUSCULAR HEMOGLOBIN 27.9 pg (27.0-33.0); MEAN CORPUSCULAR HGB CONC 32.4 g/dl (32.0-36.5); MEAN CORPUSCULAR VOLUME 85.9 fl (80.0-96.0); MONO # 0.8 10^3/uL (0.0-0.8); MONO % 9.2 % (0.0-5.0); NEUTROPHILS # 5.3 10^3/uL (1.5-8.5); NEUTROPHILS % 64.3 % (36.0-66.0); PLATELET COUNT, AUTOMATED 248 10^3/uL (150-450); RED BLOOD COUNT 4.34 10^6/uL (4.00-5.40); WHITE BLOOD COUNT 8.2 10^3/uL (4.0-10.0)
[2019-09-27 07:33] LABS: BLOOD UREA NITROGEN 8 MG/DL (7-18); CALCIUM LEVEL 8.1 MG/DL (8.8-10.2); CARBON DIOXIDE LEVEL 29 MEQ/L (21-32); CHLORIDE LEVEL 108 MEQ/L (98-107); CREATININE FOR GFR 0.52 MG/DL (0.55-1.30); GLOMERULAR FILTRATION RATE > 60.0 (>45); GLUCOSE, FASTING 89 MG/DL (70-100); POTASSIUM SERUM 3.5 MEQ/L (3.5-5.1); SODIUM LEVEL 143 MEQ/L (136-145)
[2019-09-27] MEDS: SENOKOT S TAB PO SCH (08:20)
[2019-09-27] MEDS: ALVIMOPAN 12 MG CAPSULE (ENTEREG) PO SCH (08:20)
[2019-09-27] MEDS: ENOXAPARIN 40 MG/0.4 ML SYRINGE (J1650) SC SCH (08:20)
[2019-09-27] MEDS ORDERED: MIRALAX *UNIT DOSE* 17GM PACKET PO SCH (09:00)
[2019-09-27] MEDS ORDERED: MAGNESIUM CITRATE 300 ML BTL PO ONE (10:00)
[2019-09-27] MEDS ORDERED: PERCOCET PO (12:29)
--- NOTE | 2019-09-27 12:33 | DS.PDOC ---
Discharge Summary General Date of Admission Sep 22, 2019 at 15:27 Date of Discharge September 27, 2019 Attending Physician: MELISA MONSIVAIS MD Discharge Summary PROCEDURES PERFORMED DURING STAY: robotic assisted laparoscopic lysis of adhesions, repair of incarcerated incisional hernia. ADMITTING DIAGNOSES: 1. small bowel obstruction 2. incarcerated incisional hernia 3. morbid obesity bmi 37.1. DISCHARGE DIAGNOSES: 1. small bowel obstruction 2. incarcerated incisional hernia 3. morbid obesity bmi 37.1. COMPLICATIONS/CHIEF COMPLAINT: Small Bowel Obstruction. HISTORY OF PRESENT ILLNESS: Patient returns to the emergency room after being discharged home yesterday after a 24-hour period of observation in the hospital from evening until Tuesday. She was admitted then for what was suspected to be small bowel obstruction related to possible transient incarceration of her bowels into a site of a known incisional hernia at the midline above her umbilicus. Referred t o the details of the history and physical examination during that admission. After being sent home, patient reports she was feeling well Tuesday evening but on Tuesday when she woke up she was again started having crampy abdominal pain and started vomiting prompting her to return to the emergency room. In the emergency room a repeat CT shows evidence for moderate to high-grade obstruction with a loop of bowel herniating through the incisional hernia which appears distended. Patient reports at least 4 or 5 episodes of might be related to transient obstruction related to her incisional hernia. She was in the emergency room back in May with a CT of abdomen and pelvis. This documents presence of the hernia and possibly incarceration or transient incarceration. She followed up with her prior surgeon, Dr. Rowley and was decided to watch and wait whether she will continue to be symptomatic. HOSPITAL COURSE: Nasogastric tube was placed in the emergency room to alleviate her abdominal distention and nausea from the bowel obstruction. On the first hospital day this drained 1200 ML's. This provided her relief from the discomfort, she also has started to pass some flatus but does not totally decompressed her abdomen. Repeat x-ray confirms improvement of her bowel distention. She has had recurrence of the bowel obstruction immediately from the most recent discharge I recommend for her to undergo hernia repair during this admission. Hematocrit the OR on 09/24/2019. She underwent diagnostic laparoscopy, laparoscopic lysis of adhesion, laparoscopic incisional hernia repair with mesh (IPOM plus). She did well perioperatively. I removed her nasogastric tube postoperatively Her nothing by mouth overnight and started on clear liquids the following day which he tolerated. She was advanced to regular diet on postop day 2. She was ambulating the hallways. She got a couple doses of MiraLAX for the constipation she did have a small amount of postoperative bowel movement but more importantly she is intermittently passing flatus and is resolve her abdominal distention. Date of discharge she was very comfortable ambulating independently and tolerating regular diet for the past 24 hours. DISCHARGE MEDICATIONS: Please see below. ALLERGIES: Please see below. PHYSICAL EXAMINATION ON DISCHARGE: VITAL SIGNS: Please see below. GENERAL: Patient looks very comfortable HEENT: Normocephalic, pink palpebral conjunctiva NECK: Short, supple, no jugular venous distention CARDIOVASCULAR EXAMINATION: Regular heart rate and rhythm without murmurs RESPIRATORY EXAMINATION: Clear breath sounds auscultation bilaterally without wheezing ABDOMINAL EXAMINATION: Patient has an obese abdomen but only minimally distended at this point. Abdomen is soft, mild tenderness around the left upper quadrant incision site and that the hernia repair site above the umbilicus with overall patient looks comfortable. No significant ecchymosis or hematoma EXTREMITIES: No significant edema SKIN: Warm and dry NEUROLOGICAL EXAMINATION: Awake, alert, oriented LABORATORY DATA: Please see below. IMAGING: Patient is a CT abdomen and pelvis as well as follow-up abdominal x-ray PROGNOSIS: Good ACTIVITY: Light activity 4 weeks.. DIET: Regular diet as tolerated DISCHARGE PLAN: Patient is discharged home. She is discharged home with as needed Percocets prescribed to her. DISPOSITION: . DISCHARGE INSTRUCTIONS: 1. As above 2. Take Tylenol 650 mg every 4-6 hours regularly to achieve pain control and take Motrin or Aleve every 6 hours as needed on a full stomach for moderate breakthrough pain and take the Percocets for severe breakthrough pain 3. Follow up in clinic in 2 weeks. ITEMS TO FOLLOWUP ON ON OUTPATIENT: 1 symptoms check. DISCHARGE CONDITION: Stable. TIME SPENT ON DISCHARGE: Greater than 45 minutes. Vital Signs/I&Os Vital Signs Date Time Temp Pulse Resp B/P (MAP) Pulse Ox O2 Delivery O2 Flow Rate FiO2 09/27/19 06:00 98.3 66 18 134/78 (96) 96 Room Air 09/25/19 10:38 95 09/25/19 06:00 1.0 I&O- Last 24 Hours up to 6 AM 09/27/19 06:00 Intake Total 1485 ml Balance 1485 ml Laboratory Data Labs 24H Laboratory Tests 2 09/27/19 06:19: Immature Granulocyte % (Auto) 0.2, Neutrophils (%) (Auto) 64.3, Lymphocytes (%) (Auto) 17.2L, Monocytes (%) (Auto) 9.2H, Eosinophils (%) (Auto) 8.7H, Basophils (%) (Auto) 0.4, Neutrophils # (Auto) 5.3, Lymphocytes # (Auto) 1.4L, Monocytes # (Auto) 0.8, Eosinophils # (Auto) 0.7H, Basophils # (Auto) 0.0, Nucleated Red Blood Cells % (auto) 0.0, Anion Gap 6L, Glomerular Filtration Rate > 60.0, Calcium Level 8.1L CBC/BMP Laboratory Tests 09/27/19 06:19 Discharge Medications Scheduled PRN Oxycodone/Acetaminophen (Oxycodone-Acetaminophen 5-325) 1 Each Tablet, 1-2 TAB PO Q4HP PRN for MILD/MODERATE PAIN (PS 1-7) Allergies Coded Allergies: Penicillins (Verified Allergy, Intermediate, HIVES, 05/19/19) bacitracin (Verified Allergy, Intermediate, HIVES, 05/19/19) neomycin (Verified Allergy, Intermediate, HIVES, 05/19/19) polymyxin B (Verified Allergy, Intermediate, HIVES, 05/19/19) TAPE (Verified Allergy, Unknown, 05/19/19) MELISA MONSIVAIS MD Sep 27, 2019 12:32
[2019-09-27 14:00] VITALS: BP 140/73
== END 2019-09-27 16:00 | disposition home or self-care (01) | DRG 227 ==
LOC: M ED 13:18 → M ED INP 15:27 → ENRESERV 15:51 → M MS5PR 16:20
PROVIDERS: ADMIT Surgery; ATTEND Surgery
PROC: 0DNU4ZZ Release Omentum, Percutaneous Endoscopic Approach (ICD-10-PCS; 2019-09-24)
PROC: 8E0W4CZ Robotic Assisted Procedure of Trunk Region, Percutaneous Endoscopic Approach (ICD-10-PCS; 2019-09-24)
PROC: 0WUF4JZ Supplement Abdominal Wall with Synthetic Substitute, Percutaneous Endoscopic Approach (ICD-10-PCS; principal; 2019-09-24 12:30)
DX: K43.0 Incisional hernia with obstruction, without gangrene (principal); E66.01 Morbid (severe) obesity due to excess calories; Z85.048 Personal history of other malignant neoplasm of rectum, rectosigmoid junction, and anus; Z90.49 Acquired absence of other specified parts of digestive tract; Z68.37 Body mass index [BMI] 37.0-37.9, adult; Z88.0 Allergy status to penicillin; Z88.1 Allergy status to other antibiotic agents; Z91.048 Other nonmedicinal substance allergy status

== ENCOUNTER → 2019-10-26 | Outpatient (CLI) | payer BC ==
[~2019-10-26] MED LIST changes: +CALC1TAB9 PO; +MULTCAP PO; +PERCOCET PO
--- NOTE | 2019-10-26 11:00 | REP ---
Clinical: Follow-up right ovarian cyst. Technique: Transabdominal pelvic ultrasound followed by transvaginal examination for better evaluation of the endometrium and adnexa with color Doppler evaluation of the ovaries. Findings: Bladder is normal and measures 7.6 x 4.1 x 6.9 cm. Normal anteverted uterus measures 6.4 x 2.4 x 4.4 cm. Endometrial complex measures 2.4 mm thickness. No discrete uterine or endometrial abnormality noted. Left ovary is not visualized. Right ovary measures 4.3 x 2.3 x 2.7 cm (RI 0.69) and includes 3.2 x 1.3 x 2.2 cm cyst appears essentially unchanged when compared with CT examinations dating through 04/19/2017. Impression: 1. Normal uterus. 2. Right ovarian cyst appears simple and likely unchanged when compared with multiple abdominopelvic CT is dating through 04/19/2017. Electronically Signed by Ovi Saunders MD 10/26/2019 10:51 A
== END ==
LOC: M RAD 10:00
PROVIDERS: ATTEND Obstetrics & Gynecology
DX: N83.291 Other ovarian cyst, right side (principal)

== ENCOUNTER → 2019-12-26 | Outpatient (CLI) | payer BC ==
--- NOTE | 2019-12-26 18:45 | REP ---
Clinical: Follow up ovarian cyst. Comparison: 10/26/2019. Technique: Transabdominal pelvic ultrasound followed by transvaginal examination for better evaluation of the endometrium and adnexa with color Doppler evaluation of the ovaries. Findings: Bladder is normal and measures 7.7 x 8.0 x 5.2 cm. Anteverted uterus measures 5.4 x 3.0 x 4.8 cm. The endometrial complex appears normal and measures 2 mm in thickness. No discrete uterine or endometrial abnormality identified. The bilateral ovaries are normal in vascularity without torsion. Right ovary measures 3.3 x 1.9 x 3.4 cm (RI 0.24) and includes 2.8 x 1.5 x 2.5 cm simple appearing cyst. Left ovary measures 3.1 x 1.6 x 2.4 cm (RI 0.57). No pelvic fluid or adnexal mass lesion. Impression: Normal uterus and left ovary. Right ovary demonstrates relatively stable simple appearing cyst. Electronically Signed by Ovi Saunders MD 12/26/2019 06:36 P
== END ==
LOC: M RAD 11:26
PROVIDERS: ATTEND Obstetrics & Gynecology
DX: N83.291 Other ovarian cyst, right side (principal)

== ENCOUNTER → 2020-04-21 | Outpatient (CLI) | payer BC ==
--- NOTE | 2020-05-30 13:31 | REP ---
PELVIC ULTRASOUND INCLUDING TRANSABDOMINAL, ENDOVAGINAL, AND DOPPLER ULTRASOUND ASSESSMENT FOR FOLLOW-UP OF RIGHT OVARIAN CYST Delay in reporting results from hospital computer system malfunction from malware/ ransomware. COMPARISON: 11/24/2019 FINDINGS: The uterus is anteverted and normal size measuring 5.9 x 2.9 x 5.6 cm. The endometrium is not thickened measuring 1.3 mm. The right ovary is entirely replaced by a right ovarian cyst and no identifiable right ovarian parenchymal tissue is identified. The right ovarian cyst today measures 3.4 x 1.7 x 1.6 cm. Previously this cyst measured 2.8 x 2.5 x 1.5 cm. The ovarian parenchyma is likely effaced by the wall of this cyst. We are unable to perform Doppler vascular flow of the right ovarian parenchyma on the study today. The left ovary is normal in size measuring 1.7 x 1.2 x 1.3 cm. There is no dominant mass or cyst. With color Doppler assessment, there is vascular flow in the left ovary. There is no free fluid in the pelvis. IMPRESSION: The right ovarian cyst has increased in size as discussed above and no right ovarian parenchyma can be identified. This parenchyma is likely effaced by the cyst wall. MTDD
== END ==
LOC: M RAD 13:30
PROVIDERS: ATTEND Obstetrics & Gynecology
DX: N83.291 Other ovarian cyst, right side (principal)

== ENCOUNTER → 2020-05-21 | Outpatient (CLI) | payer BC ==
--- NOTE | 2020-05-21 18:07 | REPMRS ---
Patient History The patient states she has not had a clinical breast exam in over a year. Patient is postmenopausal, has history of colorectal cancer at age 58, had previous chemotherapy at age 58, and had first child at age 31. Family history of colorectal cancer in father, breast cancer in maternal aunt. No Hormone Replacement Therapy Digital Woman Screen Mammo: May 21, 2020 - Exam #: [id number] Bilateral CC and MLO view(s) were taken. Technologist: Shanta Davidson, Technologist Prior study comparison: April 24, 2019, bilateral digital mammo screening bilat, performed at [facility]. April 04, 2018, bilateral digital mammo screening bilat, performed at [facility]. 2017, bilateral screening mammogram, performed at [facility]. FINDINGS: The breast tissue is almost entirely fat. The Volpara volumetric breast density category is: A. There has been no change in the appearance of the mammogram from the prior studies. There is no interval development of dominant mass, architectural distortion, or grouped microcalcification typical of malignancy. 3-D tomosynthesis shows no additional findings. Assessment: BI-RADS/ACR category 1 mammogram. Negative Mammogram. Recommendation Routine screening mammogram of both breasts in 1 year (for women over age 40). This patient's Lifetime Breast Cancer RIsk is estimated at 12.0 %. This mammogram was interpreted with the aid of an FDA-approved computer-aided dectection system. Electronically Signed By: Karel Dos Santos MD 05/21/20 [id number]
== END ==
LOC: M WHC 12:56
PROVIDERS: ATTEND Family Medicine
DX: Z12.31 Encounter for screening mammogram for malignant neoplasm of breast (principal); Z80.0 Family history of malignant neoplasm of digestive organs; Z85.038 Personal history of other malignant neoplasm of large intestine; Z92.21 Personal history of antineoplastic chemotherapy

== ENCOUNTER → 2020-08-19 | Outpatient (CLI) | payer BC ==
[~2020-08-19] MED LIST changes: +VITMTA PO
[2020-08-19 14:08] LABS: BASO % 0.6 % (0.0-1.0); EOS # 0.6 10^3/uL (0.0-0.5); EOS % 8.6 % (0.0-3.0); LYMPH # 1.6 10^3/uL (1.5-5.0); LYMPH % 23.1 % (24.0-44.0); MEAN CORPUSCULAR HEMOGLOBIN 26.9 pg (27.0-33.0); MEAN CORPUSCULAR HGB CONC 30.2 g/dl (32.0-36.5); MONO # 0.7 10^3/uL (0.0-0.8); MONO % 9.4 % (0.0-5.0); PLATELET COUNT, AUTOMATED 260 10^3/uL (150-450); RED BLOOD COUNT 4.83 10^6/uL (4.00-5.40); WHITE BLOOD COUNT 6.9 10^3/uL (4.0-10.0)
[2020-08-19 14:18] LABS: ALBUMIN 3.1 GM/DL (3.2-5.2); ALT/SGPT 17 U/L (12-78); BILIRUBIN,TOTAL 0.2 MG/DL (0.2-1.0); BLOOD UREA NITROGEN 16 MG/DL (7-18); CALCIUM LEVEL 8.7 MG/DL (8.8-10.2); CARBON DIOXIDE LEVEL 30 MEQ/L (21-32); CHLORIDE LEVEL 107 MEQ/L (98-107); CREATININE FOR GFR 0.75 MG/DL (0.55-1.30); GLOMERULAR FILTRATION RATE > 60.0 (>45); GLUCOSE, FASTING 173 MG/DL (70-100); POTASSIUM SERUM 3.9 MEQ/L (3.5-5.1); SODIUM LEVEL 142 MEQ/L (136-145)
== END ==
LOC: M PLALAB 08:41
PROVIDERS: ATTEND Family Medicine
DX: Z01.818 Encounter for other preprocedural examination (principal); N83.299 Other ovarian cyst, unspecified side

== ENCOUNTER → 2020-08-22 | Outpatient (CLI) | payer BC | LOC: M LABSMTC 09:56 | PROVIDERS: ATTEND Anesthesiology | DX: Z01.812 Encounter for preprocedural laboratory examination (principal); Z11.59 Encounter for screening for other viral diseases ==

== ENCOUNTER 2020-08-27 07:33 | Day surgery (SDC) | payer BC ==
[~2020-08-27] VITALS: Ht 165.1 cm; Wt 110.1 kg
[~2020-08-27 07:33] MED LIST changes: +ACETAMINOPHEN *IV* 1,000 MG in IV 1 EA IV ONE; +LR 1,000 ML IV ONE; +ceFAZolin SOD 2 GM in IV 1 EA IV ONE
[2020-08-27 08:07] LABS: HEMATOCRIT 43.8 % (36.0-47.0); HEMOGLOBIN 13.5 g/dl (12.0-15.5); MEAN CORPUSCULAR HEMOGLOBIN 26.6 pg (27.0-33.0); MEAN CORPUSCULAR HGB CONC 30.8 g/dl (32.0-36.5); MEAN CORPUSCULAR VOLUME 86.4 fl (80.0-96.0); PLATELET COUNT, AUTOMATED 267 10^3/uL (150-450); RED BLOOD COUNT 5.07 10^6/uL (4.00-5.40)
[2020-08-27 08:27] LABS: BLOOD UREA NITROGEN 13 MG/DL (7-18); CALCIUM LEVEL 8.6 MG/DL (8.8-10.2); CARBON DIOXIDE LEVEL 29 MEQ/L (21-32); CHLORIDE LEVEL 109 MEQ/L (98-107); CREATININE FOR GFR 0.74 MG/DL (0.55-1.30); GLOMERULAR FILTRATION RATE > 60.0 (>45); GLUCOSE, FASTING 95 MG/DL (70-100); POTASSIUM SERUM 3.7 MEQ/L (3.5-5.1); SODIUM LEVEL 142 MEQ/L (136-145)
[2020-08-27] MEDS ORDERED: ROCURONIUM BROMIDE 50 MG/5 ML VIAL As Ordered ONE (08:55)
[2020-08-27] MEDS ORDERED: propofoL 200 MG/20 ML VIAL As Ordered ONE (08:55)
[2020-08-27] MEDS ORDERED: LIDOCAINE 2% 100MG/5ML SDV (FOR ANES.) As Ordered ONE (08:55)
[2020-08-27] MEDS ORDERED: fentaNYL 100 MCG/2 ML INJECTION (J3010) As Ordered ONE (08:56)
[2020-08-27] MEDS ORDERED: MIDAZOLAM INJ 2MG/2ML VIAL (J2250 PER 1MG) As Ordered ONE (08:56)
[2020-08-27] MEDS ORDERED: ONDANSETRON 4MG/2ML VIAL As Ordered ONE (09:01)
[2020-08-27] MEDS ORDERED: dexameTHASONE 4 MG/ML 1ML VIAL (J1100 PER 1MG) As Ordered ONE (09:01)
[2020-08-27] MEDS ORDERED: SUGAMMADEX SODIUM 500 MG/5 ML VIAL (BRIDION) As Ordered ONE (09:39)
[2020-08-27] MEDS ORDERED: KETOROLAC 60MG 2ML VIAL As Ordered ONE (09:39)
[2020-08-27] MEDS ORDERED: ACETAMINOPHEN 1000MG 100ML IV BTL (OFIRMEV) (J0131 PER 10MG) As Ordered ONE (09:39)
[2020-08-27] MEDS ORDERED: LIDOCAINE W/EPINEPHRINE 1% 20ML VIAL As Ordered ONE (09:41)
[2020-08-27] MEDS ORDERED: FLUORESCEIN 10% (100MG/ML) 5 ML VIAL As Ordered ONE (09:41)
[2020-08-27] MEDS ORDERED: HYDROmorphone HCL 2 MG/ML 1ML VIAL (J1170) As Ordered ONE (09:59)
[2020-08-27] MEDS ORDERED: LR 1,000 ML IV SCH (12:15)
[2020-08-27] MEDS ORDERED: ONDANSETRON 4MG/2ML VIAL IV PRN (12:15)
[2020-08-27] MEDS ORDERED: oxyCODONE 5MG TAB PO PRN (12:15)
[2020-08-27] MEDS ORDERED: PERCOCET 5MG/325MG TAB PO PRN (12:15)
[2020-08-27] MEDS ORDERED: METOCLOPRAMIDE INJ 10MG/2ML VIAL (J2765 PER 1) IV PRN (12:15)
[2020-08-27] MEDS: fentaNYL 100 MCG/2 ML INJECTION (J3010) IV PRN ×4 (12:17→12:33)
[2020-08-27 14:45] VITALS: BP 135/70
[2020-08-27] MEDS ORDERED: IBUPROFEN 800 MG TAB PO SCH (18:00)
--- NOTE | 2020-08-28 10:59 | RO ---
OPERATIVE NOTE DATE OF OPERATION: 08/27/2020 INDICATIONS: Daniela is a 64-year-old female with history of persistent ovarian cyst and pelvic pain. She also has had multiple intestinal open abdominal surgeries. After extensive counseling with the patient in the office the decision was made to proceed with robotic-assisted total hysterectomy and removal of both tubes and ovaries. PREOPERATIVE DIAGNOSES: 1. Persistent ovarian cyst. 2. Pelvic pain. 3. Multiple prior intraabdominal surgeries. POSTOPERATIVE DIAGNOSIS: 1. Persistent ovarian cyst. 2. Pelvic pain. 3. Multiple prior intraabdominal surgeries. 4. Dense bowel and omental adhesions. PROCEDURES: 1. Robotic-assisted total hysterectomy. 2. Bilateral salpingo-oophorectomy. 3. Lysis of adhesions. 4. Cystoscopy. ANESTHESIA: General. SURGEON: Cheng Ryan DO COMPLICATIONS: None. ESTIMATED BLOOD LOSS: Less than 100 mL. SPECIMEN SENT TO THE LAB: Uterus, tubes and ovaries. PROCEDURE: After obtaining informed consent the patient was taken to the operating room where general anesthetic was found to be adequate. She was then prepped and draped in usual sterile fashion in dorsal lithotomy position. At this point a Brandt catheter was placed in the bladder for drainage. We then turned our attention to the abdomen where the abdomen was insufflated with CO2 gas to approximately 3.5 liters. I then placed PRABHU II uterine manipulator. Attention was then turned to the abdomen where supraumbilical incision was made and an 8 mm robotic trocar was placed under direct visualization for the camera port. I then placed two left 8 mm lateral ports for robotic on 2 and assist port. On the right side an 8 mm lateral port was placed for robotic arm 1. At this point we encountered multiple adhesions and were not able to visualize the target anatomy. Using an Devan Harmonic scalpel and series of blunt and sharp dissection the bowel adhesions as well as the omental adhesions were then removed. We were then able to free up the operative site to begin the surgery. Upon evaluating the uterus and adnexa the left adnexa was found to be adherent to the pelvic sidewall with what appeared to be a simple cyst. The right ovary also had a simple cyst. At this point using a vessel sealer and the bipolar grasper with series of sharp and blunt dissection we were able to free up the left adnexa. At this point the infundibulopelvic ligament was cauterized and cut using the vessel sealer. This was taken all the way down to the uterine arteries. The uterine arteries were cauterized and cut using the vessel sealer. The opposite side was done in similar fashion. At this point the anterior leaf of the broad ligament was dissected to create a bladder flap; the posterior aspect done in similar fashion. After securing both uterine arteries the vessel sealer was removed and Endo Chris was placed. Anterior and posterior colpotomy was then performed. The uterus, tubes and ovaries were removed through the vagina. Moistened sponge lap was placed in the vagina to maintain pneumoperitoneum. 2-0 V-Loc suture was introduced through the assist port and the vaginal cuff was closed in running fashion using 2-0 V-Loc suture. The peritoneum over the vaginal cuff was also closed. Pelvis was copiously irrigated with normal saline and suctioned out. Good hemostasis noted. 1 mL of Fluorescein was given by the anesthesiologist to assist with the cystoscopy. At this point in rescrubbed and went to the patient's side, retrogradely filled the bladder with 230 mL of normal saline. Brandt catheter was removed. Cystoscopy was performed. Bilateral ureteral jets were noted, no evidence of any bladder injury noted. At this point the cystoscope was removed and Brandt catheter replaced back in the bladder for drainage. All the robotic instruments as well as trocars were removed. The trocar sites were closed using 3-0 Vicryl in subcuticular fashion. 0.25% Marcaine placed, Dermabond placed. The patient tolerated the procedure well. She was transferred to recovery room in stable condition. cc: [facility]
== END 2020-08-27 15:05 | disposition home or self-care (01) ==
LOC: M SDC 07:33
PROVIDERS: ATTEND Obstetrics & Gynecology
DX: D27.0 Benign neoplasm of right ovary (principal); N83.12 Corpus luteum cyst of left ovary; N72 Inflammatory disease of cervix uteri; N85.00 Endometrial hyperplasia, unspecified; K66.0 Peritoneal adhesions (postprocedural) (postinfection); K21.9 Gastro-esophageal reflux disease without esophagitis; R06.83 Snoring; Z85.048 Personal history of other malignant neoplasm of rectum, rectosigmoid junction, and anus; Z88.0 Allergy status to penicillin; Z88.1 Allergy status to other antibiotic agents; Z91.048 Other nonmedicinal substance allergy status; Z92.21 Personal history of antineoplastic chemotherapy; Z92.3 Personal history of irradiation; Z98.51 Tubal ligation status
CPT/HCPCS: 36415; 58571; 80048; 85027; 86850; 86900; 86901; 88307; J0131; J0690; J1100; J1170; J1885; J2250; J2405; J3010

== ENCOUNTER → 2020-11-27 | Outpatient (CLI) | payer BC ==
[~2020-11-27] MED LIST changes: -ACETAMINOPHEN *IV* 1,000 MG in IV 1 EA IV ONE; -LR 1,000 ML IV ONE; -ceFAZolin SOD 2 GM in IV 1 EA IV ONE
[2020-11-27 12:28] LABS: BLOOD UREA NITROGEN 16 MG/DL (7-18); CALCIUM LEVEL 8.6 MG/DL (8.8-10.2); CARBON DIOXIDE LEVEL 28 MEQ/L (21-32); CHLORIDE LEVEL 108 MEQ/L (98-107); GLOMERULAR FILTRATION RATE > 60.0 (>45); GLUCOSE, FASTING 103 MG/DL (70-100); POTASSIUM SERUM 4.6 MEQ/L (3.5-5.1); SODIUM LEVEL 141 MEQ/L (136-145)
[2020-11-27 12:34] LABS: HEMOGLOBIN A1c 5.9 %
== END ==
LOC: M PLALAB 08:50
PROVIDERS: ATTEND Family Medicine
DX: R73.9 Hyperglycemia, unspecified (principal)

== ENCOUNTER → 2021-05-22 | Outpatient (CLI) | payer BC ==
--- NOTE | 2021-05-22 11:32 | REPMRS ---
Patient History The patient states she has not had a clinical breast exam in over a year. Family history of colorectal cancer in father, breast cancer in maternal aunt. No Hormone Replacement Therapy Patient states no breast complaints today. Patient has signed MRS History Sheet. Digital Woman Screen Mammo: May 22, 2021 - Exam #: [id number] Bilateral CC and MLO view(s) were taken. Technologist: Karen Markham, Technologist Prior study comparison: May 21, 2020, bilateral digital woman screen mammo performed at [facility]. April 24, 2019, bilateral digital mammo screening bilat, performed at [facility]. FINDINGS: The breast tissue is almost entirely fat. Screening. Digital screening (2D) mammography was performed bilaterally in the CC and MLO projections. Additionally, breast tomosynthesis (3D mammography) was performed bilaterally in the CC and MLO projections. Todays exam was compared to the prior exam/exams. By history, the patient has no complaints of a palpable breast abnormality or other significant breast complaints. The breasts are unchanged in size and shape. There are no marcellus-soft tissue densities or spiculated masses. There is no internal architectural distortion. Once again, stable benign appearing calcifications are seen.There are no suspicious marcellus-calcific clusters. Skin thickening or nipple retraction is not present. IMPRESSION: BI-RADS Category 2- Benign Findings. There is no evidence of malignant alteration of the breasts. Followup examination recommended in one year. The Volpara volumetric breast density category is A, the breasts are almost entirely fatty. This mammogram was read with the assistance of [facility] [employer]an FDA approved computer aided detection system for mammography. The lifetime Tyrer-Cuzick score is 11.4 % Negative x-ray reports should not delay surgical consultation if a dominant or clinically suspicious mass is present. Not all breast cancers can be identified by mammography. Therefore, we recommend that you continue to perform regular breast self-examination and physical examination and then promptly contact your physician of any concerns or changes. Adenosis and dense breasts may obscure an underlying neoplasm. Assessment: BI-RADS/ACR category 2 mammogram. Benign Findings. Recommendation Routine screening mammogram of both breasts in 1 year. Electronically Signed By: Enrique Neal DO 05/22/21 [id number]
--- NOTE | 2021-05-22 11:36 | DEXAMM ---
INDICATION: M89.9 DISORDER OF BONE. COMPARISON: None. TECHNIQUE: Bone density was measured using dual-energy x-ray absorptiometry (DEXA). FINDINGS: AP SPINE L1-L4 BMD 1.374 g/cm2 Young Adult T-Score 1.4 Age Matched Z-Score 3.1. LT FEMUR, TOTAL BMD 1.086 g/cm2 Young Adult T-Score 0.6 Age Matched Z-Score 1.9. LT NECK BMD 0.914 g/cm2 Young Adult T-Score -0.9 Age Matched Z-Score 0.6. RT FEMUR, TOTAL BMD 1.087 g/cm2 Young Adult T-Score 0.6 Age Matched Z-Score 1.9. RT NECK BMD 0.926 g/cm2 Young Adult T-Score -0.8 Age Matched Z-Score 0.7. IMPRESSION: There is normal bone density of the spine. There is normal bone density of the left hip. There is normal bone density of the right hip. FOLLOW-UP: Recommendation for the next bone density exam: 5 years. <Electronically signed by Hiram Schuler > 05/22/21 [id number]
== END ==
LOC: M WHC 10:27
PROVIDERS: ATTEND Family Medicine
DX: Z12.31 Encounter for screening mammogram for malignant neoplasm of breast (principal); M89.9 Disorder of bone, unspecified

== ENCOUNTER → 2021-09-17 | Outpatient (REF) | payer BC ==
[2021-09-17 20:38] LABS: RSV AMPLIFICATION NEGATIVE (NEGATIVE)
== END ==
LOC: M LAB REF 19:15
PROVIDERS: ATTEND Physician Assistant
DX: R05.9 Cough, unspecified (principal)

== ENCOUNTER → 2022-01-21 | Outpatient (CLI) | payer OTHER | LOC: M LABSMTC 10:35 | PROVIDERS: ATTEND Anesthesiology | DX: Z11.52 Encounter for screening for COVID-19 (principal); Z20.822 Contact with and (suspected) exposure to COVID-19 ==

== ENCOUNTER 2022-01-26 08:22 | Day surgery (SDC) | payer OTHER ==
[~2022-01-26] VITALS: Ht 165.1 cm; Wt 106.1 kg
[~2022-01-26 08:22] MED LIST changes: +LIDOCAINE 2% 100MG/5ML SDV (FOR ANES.) As Ordered ONE; +NS 1,000 ML IV ONE; +propofoL 200 MG/20 ML VIAL As Ordered ONE
[2022-01-26 10:00] VITALS: BP 174/86
== END 2022-01-26 10:05 | disposition home or self-care (01) ==
LOC: M OPP 08:22
PROVIDERS: ATTEND Internal Medicine Gastroenterology
DX: Z12.11 Encounter for screening for malignant neoplasm of colon (principal); Z85.048 Personal history of other malignant neoplasm of rectum, rectosigmoid junction, and anus; Z80.0 Family history of malignant neoplasm of digestive organs; K57.30 Diverticulosis of large intestine without perforation or abscess without bleeding; K64.8 Other hemorrhoids; K63.89 Other specified diseases of intestine; Z88.0 Allergy status to penicillin; Z88.1 Allergy status to other antibiotic agents; Z91.048 Other nonmedicinal substance allergy status; Z98.0 Intestinal bypass and anastomosis status; Z92.21 Personal history of antineoplastic chemotherapy; Z92.3 Personal history of irradiation

== ENCOUNTER → 2022-04-01 | Outpatient (CLI) | payer OTHER ==
[~2022-04-01] MED LIST changes: -LIDOCAINE 2% 100MG/5ML SDV (FOR ANES.) As Ordered ONE; -NS 1,000 ML IV ONE; -propofoL 200 MG/20 ML VIAL As Ordered ONE
[2022-04-01 16:14] LABS: BASO # 0.1 10^3/uL (0.0-0.2); BASO % 0.8 % (0.0-1.0); EOS # 0.4 10^3/uL (0.0-0.5); EOS % 5.6 % (0.0-3.0); LYMPH % 25.6 % (24.0-44.0); MEAN CORPUSCULAR HEMOGLOBIN 27.9 pg (27.0-33.0); MEAN CORPUSCULAR HGB CONC 32.6 g/dl (32.0-36.5); MEAN CORPUSCULAR VOLUME 85.7 fl (80.0-96.0); MONO # 0.7 10^3/uL (0.0-0.8); NEUTROPHILS # 4.5 10^3/uL (1.5-8.5); NEUTROPHILS % 58.7 % (36.0-66.0); PLATELET COUNT, AUTOMATED 270 10^3/uL (150-450); RED BLOOD COUNT 5.02 10^6/uL (4.00-5.40); WHITE BLOOD COUNT 7.7 10^3/uL (4.0-10.0)
[2022-04-01 16:53] LABS: ALBUMIN 3.2 GM/DL (3.2-5.2); ALT/SGPT 18 U/L (12-78); BILIRUBIN,TOTAL 0.4 MG/DL (0.2-1.0); BLOOD UREA NITROGEN 13 MG/DL (7-18); CALCIUM LEVEL 8.9 MG/DL (8.8-10.2); CARBON DIOXIDE LEVEL 29 MEQ/L (21-32); CHLORIDE LEVEL 107 MEQ/L (98-107); CHOLESTEROL LEVEL 172 MG/DL (<200); CHOLESTEROL RISK RATIO 2.866 (<5); CREATININE FOR GFR 0.73 MG/DL (0.55-1.30); GLOMERULAR FILTRATION RATE > 60.0 (>45); GLUCOSE, FASTING 95 MG/DL (70-100); HDL CHOLESTEROL 60 MG/DL (>40); LDL CHOLESTEROL 99 MG/DL (<100); NON-HDL-C 112 MG/DL; POTASSIUM SERUM 4.1 MEQ/L (3.5-5.1); SODIUM LEVEL 141 MEQ/L (136-145); TOTAL PROTEIN 6.4 GM/DL (6.4-8.2); TRIGLYCERIDES LEVEL 66 MG/DL (<150)
== END ==
LOC: M WUC 13:00
PROVIDERS: ATTEND Nurse Practitioner Family
DX: R03.0 Elevated blood-pressure reading, without diagnosis of hypertension (principal)

== ENCOUNTER → 2022-05-24 | Outpatient (CLI) | payer OTHER | LOC: M WHC 10:39 | PROVIDERS: ATTEND Obstetrics & Gynecology | DX: Z12.31 Encounter for screening mammogram for malignant neoplasm of breast (principal) ==

== ENCOUNTER → 2022-10-18 | Outpatient (CLI) | payer MEDICARE | LOC: M PLAIMG 13:54 | PROVIDERS: ATTEND Registered Nurse | DX: R10.9 Unspecified abdominal pain (principal) ==

== ENCOUNTER 2022-10-24 15:51 | Emergency (ER) | payer MEDICARE ==
[~2022-10-24] VITALS: Ht 165.1 cm; Wt 115.9 kg
[2022-10-24] MEDS ORDERED: LOSA25TA13 (16:02)
[2022-10-24 17:12] LABS: BASO # 0.1 10^3/uL (0.0-0.2); BASO % 0.6 % (0.0-1.0); EOS # 0.5 10^3/uL (0.0-0.5); EOS % 4.6 % (0.0-3.0); HEMATOCRIT 39.3 % (36.0-47.0); LYMPH # 1.6 10^3/uL (1.5-5.0); LYMPH % 15.5 % (24.0-44.0); MEAN CORPUSCULAR HEMOGLOBIN 27.6 pg (27.0-33.0); MEAN CORPUSCULAR HGB CONC 33.1 g/dl (32.0-36.5); MEAN CORPUSCULAR VOLUME 83.4 fl (80.0-96.0); MONO # 1.1 10^3/uL (0.0-0.8); MONO % 10.5 % (2.0-8.0); NEUTROPHILS # 6.8 10^3/uL (1.5-8.5); PLATELET COUNT, AUTOMATED 313 10^3/uL (150-450); RED BLOOD COUNT 4.71 10^6/uL (4.00-5.40); WHITE BLOOD COUNT 10.1 10^3/uL (4.0-10.0)
[2022-10-24] MEDS ORDERED: ISOVUE-370 76% 100ML VIAL As Ordered ONE (17:28)
[2022-10-24 17:33] LABS: ALBUMIN 2.6 G/DL (3.2-5.2); BILIRUBIN,DIRECT 0.1 MG/DL (<0.4); BILIRUBIN,TOTAL 0.4 MG/DL (0.3-1.2); TOTAL PROTEIN 6.2 G/DL (5.7-8.2)
[2022-10-24] MEDS ORDERED: CIPROFLOXACIN 500MG TABLET PO ONE (19:20)
[2022-10-24 19:30] VITALS: BP 160/82
[2022-10-24] MEDS ORDERED: NORCO 5/325MG TABLET (HOME DOSE PACK) PO ONE (19:30)
[2022-10-24] MEDS ORDERED: ONDANSETRON 4MG ORAL DISINTEGRATING TAB PO ONE (19:30)
[2022-10-24] MEDS ORDERED: ONDA4TAB6 PO (19:32)
[2022-10-24] MEDS ORDERED: CIPR-249 PO (19:32)
[2022-10-24] MEDS ORDERED: HYDR-3713 PO (19:34)
== END 2022-10-24 19:54 | disposition home or self-care (01) ==
LOC: M ED 15:51
DX: N21.1 Calculus in urethra (principal); N39.0 Urinary tract infection, site not specified; N28.1 Cyst of kidney, acquired; K76.89 Other specified diseases of liver; I10 Essential (primary) hypertension; Z85.038 Personal history of other malignant neoplasm of large intestine; Z90.49 Acquired absence of other specified parts of digestive tract; K42.9 Umbilical hernia without obstruction or gangrene; Z88.0 Allergy status to penicillin; Z88.8 Allergy status to other drugs, medicaments and biological substances; Z88.1 Allergy status to other antibiotic agents; Z91.89 Other specified personal risk factors, not elsewhere classified
CPT/HCPCS: 74177; 80047; 80076; 81001; 83690; 85025; 87086; 93041; 99284; Q9967

== ENCOUNTER → 2022-11-04 | Outpatient (CLI) | payer MEDICARE ==
[~2022-11-04] MED LIST changes: +HYDR-3713 PO; +LOSA25TA13
[2022-11-04 11:16] LABS: AMORPHOUS SEDIMENT SMALL (NEGATIVE); APPEARANCE, URINE CLOUDY (CLEAR); BACTERIA, URINE AUTO NEGATIVE (NEGATIVE); BILIRUBIN, URINE AUTO NEGATIVE (NEGATIVE); BLOOD, URINE BLOOD 1+ (NEGATIVE); COLOR, URINE YELLOW (YELLOW); GLUCOSE, URINE (UA) AUTO NEGATIVE (NEGATIVE); KETONE, URINE AUTO NEGATIVE (NEGATIVE); LEUKOCYTE ESTERASE, URINE AUTO 3+ (NEGATIVE); MUCUS, URINE SMALL (NEGATIVE); NITRITE, URINE AUTO NEGATIVE (NEGATIVE); PROTEIN, URINE AUTO 2+ mg/dL (NEGATIVE); RBC, URINE AUTO 13 /HPF (0-3); SPECIFIC GRAVITY URINE AUTO 1.024 (1.002-1.035); SQUAMOUS EPITHELIAL CELL UR AU 3 /HPF (0-6); UROBILINOGEN, URINE AUTO 0.2 mg/dL (0.0-2.0); WBC, URINE AUTO 13 /HPF (0-3)
[2022-11-04 11:39] LABS: BASO # 0.1 10^3/uL (0.0-0.2); BASO % 0.7 % (0.0-1.0); EOS # 0.2 10^3/uL (0.0-0.5); EOS % 2.1 % (0.0-3.0); HEMATOCRIT 40.8 % (36.0-47.0); LYMPH # 1.3 10^3/uL (1.5-5.0); LYMPH % 14.9 % (24.0-44.0); MEAN CORPUSCULAR HEMOGLOBIN 27.1 pg (27.0-33.0); MEAN CORPUSCULAR HGB CONC 31.9 g/dl (32.0-36.5); MONO # 0.9 10^3/uL (0.0-0.8); MONO % 9.7 % (2.0-8.0); NEUTROPHILS # 6.4 10^3/uL (1.5-8.5); NEUTROPHILS % 72.1 % (36.0-66.0); PLATELET COUNT, AUTOMATED 326 10^3/uL (150-450); WHITE BLOOD COUNT 8.8 10^3/uL (4.0-10.0)
[2022-11-04 12:08] LABS: ALBUMIN 2.7 G/DL (3.2-5.2); ALKALINE PHOSPHATASE 81 U/L (46-116); ALT/SGPT 15 U/L (7.0-40); AST/SGOT 11 U/L (<34); BILIRUBIN,TOTAL 0.4 MG/DL (0.3-1.2); BLOOD UREA NITROGEN 17 MG/DL (9-23); CALCIUM LEVEL 8.6 MG/DL (8.3-10.6); CARBON DIOXIDE LEVEL 28 MMOL/L (20-31); CHLORIDE LEVEL 103 MMOL/L (98-107); CHOLESTEROL LEVEL 137 MG/DL (<200); CHOLESTEROL RISK RATIO 3.11 (<5); CREATININE FOR GFR 0.85 MG/DL (0.55-1.30); GLOMERULAR FILTRATION RATE > 60.0 (>45); GLUCOSE, FASTING 111 MG/DL (74-106); LDL CHOLESTEROL 80.6 MG/DL (<100); NON-HDL-C 93 MG/DL; POTASSIUM SERUM 4.2 MMOL/L (3.5-5.1); SODIUM LEVEL 138 MMOL/L (136-145); TOTAL PROTEIN 6.3 G/DL (5.7-8.2); TRIGLYCERIDES LEVEL 62 MG/DL (<150)
== END ==
LOC: M LAB 09:56
PROVIDERS: ATTEND Nurse Practitioner Family
DX: Z01.818 Encounter for other preprocedural examination (principal); I10 Essential (primary) hypertension

== ENCOUNTER → 2022-11-04 | Outpatient (CLI) | payer MEDICARE | LOC: M RAD 09:53 | PROVIDERS: ATTEND Physician Assistant | DX: Z01.818 Encounter for other preprocedural examination (principal); M48.14 Ankylosing hyperostosis [Forestier], thoracic region ==

== ENCOUNTER → 2022-11-05 | Outpatient (CLI) | payer MEDICARE ==
[~2022-11-05] MED LIST changes: +FLOM0.4C39 PO
== END ==
LOC: M LABSMTC 08:45
PROVIDERS: ATTEND Anesthesiology
DX: Z01.812 Encounter for preprocedural laboratory examination (principal)

== ENCOUNTER → 2022-11-10 | Day surgery (SDC) | payer MEDICARE ==
[~2022-11-10] VITALS: Ht 165.1 cm; Wt 113.0 kg
[~2022-11-10] MED LIST changes: +ACETAMINOPHEN 1000MG 100ML IV BAG As Ordered ONE; +HYDROMORPHONE HCL 0.5 MG/ 0.5 ML SYRINGE IV PRN; +LIDOCAINE 2% 100MG/5ML SDV (FOR ANES.) As Ordered ONE; +LR 1,000 ML IV SCH; +LevoFLOXacin IV 500 MG in IV 1 EA IV ONE; +MIDAZOLAM INJ 2MG/2ML VIAL As Ordered ONE; +ONDANSETRON 4MG 2ML VIAL As Ordered ONE; +ONDANSETRON 4MG 2ML VIAL IV PRN; +fentaNYL 100 MCG/2 ML INJECTION As Ordered ONE; +fentaNYL 100 MCG/2 ML INJECTION IV PRN; +oxyCODONE 5MG TAB PO PRN; +propofoL 200 MG/20 ML VIAL As Ordered ONE
[2022-11-10 12:23] VITALS: BP 135/97
[2022-11-15 14:08] LABS: Ca Ox Monohydrate 10 % (.); Size 3x5 mm (.); Uric Acid 90 % (.)
== END | disposition home or self-care (01) ==
LOC: M SDC 07:38
PROVIDERS: ATTEND Urology
DX: N20.1 Calculus of ureter (principal); I10 Essential (primary) hypertension; Z85.048 Personal history of other malignant neoplasm of rectum, rectosigmoid junction, and anus; Z90.49 Acquired absence of other specified parts of digestive tract; Z88.0 Allergy status to penicillin; Z88.8 Allergy status to other drugs, medicaments and biological substances; Z88.1 Allergy status to other antibiotic agents; Z91.048 Other nonmedicinal substance allergy status; Z79.899 Other long term (current) drug therapy
CPT/HCPCS: 52356; 74420; 82365; C1769; C1894; C2617; J0131; J1100; J1956; J2250; J2405; J3010

== ENCOUNTER → 2023-01-21 | Outpatient (CLI) | payer MEDICARE ==
[~2023-01-21] MED LIST changes: -ACETAMINOPHEN 1000MG 100ML IV BAG As Ordered ONE; -HYDROMORPHONE HCL 0.5 MG/ 0.5 ML SYRINGE IV PRN; -LIDOCAINE 2% 100MG/5ML SDV (FOR ANES.) As Ordered ONE; -LR 1,000 ML IV SCH; -LevoFLOXacin IV 500 MG in IV 1 EA IV ONE; -MIDAZOLAM INJ 2MG/2ML VIAL As Ordered ONE; -ONDANSETRON 4MG 2ML VIAL As Ordered ONE; -ONDANSETRON 4MG 2ML VIAL IV PRN; -fentaNYL 100 MCG/2 ML INJECTION As Ordered ONE; -fentaNYL 100 MCG/2 ML INJECTION IV PRN; -oxyCODONE 5MG TAB PO PRN; -propofoL 200 MG/20 ML VIAL As Ordered ONE
[2023-01-21 11:10] LABS: BASO # 0.1 10^3/uL (0.0-0.2); EOS # 0.6 10^3/uL (0.0-0.5); HEMATOCRIT 39.6 % (36.0-47.0); HEMOGLOBIN 12.5 g/dl (12.0-15.5); LYMPH # 1.8 10^3/uL (1.5-5.0); LYMPH % 25.7 % (24.0-44.0); MEAN CORPUSCULAR HEMOGLOBIN 26.9 pg (27.0-33.0); MEAN CORPUSCULAR HGB CONC 31.6 g/dl (32.0-36.5); MEAN CORPUSCULAR VOLUME 85.2 fl (80.0-96.0); MONO # 0.7 10^3/uL (0.0-0.8); MONO % 9.6 % (2.0-8.0); NEUTROPHILS # 3.9 10^3/uL (1.5-8.5); NEUTROPHILS % 55.4 % (36.0-66.0); PLATELET COUNT, AUTOMATED 277 10^3/uL (150-450); RED BLOOD COUNT 4.65 10^6/uL (4.00-5.40); WHITE BLOOD COUNT 7.1 10^3/uL (4.0-10.0)
[2023-01-21 11:31] LABS: ALBUMIN 2.7 G/DL (3.2-5.2); BILIRUBIN,TOTAL 0.4 MG/DL (0.3-1.2); CALCIUM LEVEL 8.1 MG/DL (8.3-10.6); CHOLESTEROL RISK RATIO 2.93 (<5); CREATININE FOR GFR 1.35 MG/DL (0.55-1.30); GLOMERULAR FILTRATION RATE 41.5 (>45); HDL CHOLESTEROL 52.5 MG/DL (>40); LDL CHOLESTEROL 84.7 MG/DL (<100); NON-HDL-C 101.5 MG/DL; POTASSIUM SERUM 4.9 MMOL/L (3.5-5.1); TOTAL PROTEIN 6.1 G/DL (5.7-8.2)
== END ==
LOC: M PLALAB 08:38
PROVIDERS: ATTEND Nurse Practitioner Family
DX: I10 Essential (primary) hypertension (principal)

== ENCOUNTER → 2023-05-16 | Outpatient (CLI) | payer MEDICARE | LOC: M RAD 10:02 | PROVIDERS: ATTEND Urology | DX: N20.0 Calculus of kidney (principal); N28.1 Cyst of kidney, acquired ==

== ENCOUNTER → 2024-03-16 | Outpatient (CLI) | payer MEDICARE ==
[~2024-03-16] MED LIST changes: +ONDA-282 PO; -ONDA4TAB6 PO
[2024-03-16 14:34] LABS: URIC ACID 6.9 MG/DL (3.1-7.8)
[2024-03-16 14:37] LABS: RHEUMATOID FACTOR QUANT < 3.5 IU/ML (<14)
[2024-03-19 23:53] LABS: CYCLIC CITRULLINATED PEPTIDE < 16 UNITS (<20)
[2024-03-20 12:58] LABS: ANA SCREEN, IFA NEGATIVE (NEGATIVE)
== END ==
LOC: M PLALAB 11:01
PROVIDERS: ATTEND Registered Nurse
DX: R21 Rash and other nonspecific skin eruption (principal)

== ENCOUNTER → 2024-05-21 | Outpatient (CLI) | payer MEDICARE | LOC: M PLAIMG 15:24 | PROVIDERS: ATTEND Nurse Practitioner Family | DX: R05.9 Cough, unspecified (principal) ==

== ENCOUNTER → 2024-06-04 | Outpatient (CLI) | payer MEDICARE | LOC: M WHC 12:11 | PROVIDERS: ATTEND Obstetrics & Gynecology | DX: Z12.31 Encounter for screening mammogram for malignant neoplasm of breast (principal); R92.313 Mammographic fatty tissue density, bilateral breasts ==

== ENCOUNTER → 2024-06-14 | Outpatient (CLI) | payer MEDICARE | LOC: M PLAIMG 14:05 | PROVIDERS: ATTEND Nurse Practitioner Family | DX: J20.9 Acute bronchitis, unspecified (principal); R06.02 Shortness of breath; J84.10 Pulmonary fibrosis, unspecified; N13.30 Unspecified hydronephrosis ==

== ENCOUNTER → 2024-06-22 | Outpatient (CLI) | payer MEDICARE | LOC: M RAD 12:25 | PROVIDERS: ATTEND Urology | DX: N20.0 Calculus of kidney (principal) ==

== ENCOUNTER → 2024-07-16 | Outpatient (CLI) | payer MEDICARE | LOC: M RAD 10:11 | PROVIDERS: ATTEND Urology | DX: N13.30 Unspecified hydronephrosis (principal); N20.0 Calculus of kidney ==

== ENCOUNTER → 2024-09-09 | Outpatient (CLI) | payer MEDICARE ==
[2024-09-09 13:23] LABS: CHOLESTEROL RISK RATIO 2.94 (<5); LDL CHOLESTEROL 89.6 MG/DL (<100)
[2024-09-09 13:29] LABS: HEMOGLOBIN A1c 6.5 % (4.0-6.0)
== END ==
LOC: M LAB 12:19
PROVIDERS: ATTEND Registered Nurse
DX: E66.9 Obesity, unspecified (principal)

== ENCOUNTER → 2024-09-09 | Outpatient (CLI) | payer MEDICARE ==
[2024-09-09 12:57] LABS: HEMATOCRIT 41.1 % (36.0-47.0); HEMOGLOBIN 13.6 g/dl (12.0-15.5); MEAN CORPUSCULAR HEMOGLOBIN 27.3 pg (27.0-33.0); MEAN CORPUSCULAR HGB CONC 33.1 g/dl (32.0-36.5); MEAN CORPUSCULAR VOLUME 82.4 fl (80.0-96.0); PLATELET COUNT, AUTOMATED 250 10^3/uL (150-450); RED BLOOD COUNT 4.99 10^6/uL (4.00-5.40)
[2024-09-09 13:23] LABS: CALCIUM LEVEL 8.9 MG/DL (8.3-10.6); CREATININE FOR GFR 0.99 MG/DL (0.55-1.30); GLOMERULAR FILTRATION RATE 59.2 (>45); POTASSIUM SERUM 4.4 MMOL/L (3.5-5.1)
== END ==
LOC: M RAD 12:13
PROVIDERS: ATTEND Urology
DX: N13.30 Unspecified hydronephrosis (principal)

== ENCOUNTER → 2024-09-11 | Outpatient (REF) | payer MEDICARE | LOC: M SMT 15:05 | PROVIDERS: ATTEND Urology | DX: Z01.818 Encounter for other preprocedural examination (principal); N13.30 Unspecified hydronephrosis; N39.0 Urinary tract infection, site not specified ==

== ENCOUNTER 2024-09-21 06:05 | Observation (INO) | payer MEDICARE ==
[~2024-09-21] VITALS: Ht 165.1 cm; Wt 118.6 kg
[~2024-09-21 06:05] MED LIST changes: +ALBU8.5H INH; -LOSA25TA13; +LOSA25TA13 PO; +METF-838 PO
[2024-09-21] MEDS ORDERED: LR 1,000 ML IV SCH (06:25)
[2024-09-21] MEDS ORDERED: MIDAZOLAM INJ 2MG/2ML VIAL As Ordered ONE (07:11)
[2024-09-21] MEDS ORDERED: dexmedeTOMIDine (4MCG/ML)200MCG/50ML BTL (PRECEDEX) As Ordered ONE (07:11)
[2024-09-21] MEDS ORDERED: ONDANSETRON 4MG 2ML VIAL As Ordered ONE (07:11)
[2024-09-21] MEDS ORDERED: LIDOCAINE 2% 100MG/5ML SDV (FOR ANES.) As Ordered ONE (07:11)
[2024-09-21] MEDS ORDERED: ACETAMINOPHEN 1000MG/100ML IV BAG As Ordered ONE (07:11)
[2024-09-21] MEDS ORDERED: fentaNYL 100 MCG/2 ML INJECTION As Ordered ONE (07:12)
[2024-09-21] MEDS ORDERED: propofoL 200 MG/20 ML VIAL As Ordered ONE (07:13)
[2024-09-21] MEDS: ceFAZolin SOD 2 GM in IV 1 EA IV ONE (07:45)
[2024-09-21] MEDS ORDERED: LABETALOL 100MG/20ML VIAL As Ordered ONE (07:51)
[2024-09-21] MEDS ORDERED: PHENYLephrine 500MCG 5ML (100MCG/ML) SYRINGE As Ordered ONE (08:08)
[2024-09-21] MEDS ORDERED: ROCURONIUM BROMIDE 50MG/5ML VIAL As Ordered ONE (08:12)
[2024-09-21] MEDS: LR 1,000 ML IV SCH (08:18)
[2024-09-21] MEDS ORDERED: SUGAMMADEX SODIUM 500 MG/5 ML VIAL (BRIDION) As Ordered ONE (08:21)
[2024-09-21] MEDS: ISOVUE-300 61% 100ML VIAL As Ordered ONE (09:10)
[2024-09-21] MEDS ORDERED: fentaNYL 100 MCG/2 ML INJECTION IV PRN (09:20)
[2024-09-21] MEDS ORDERED: ONDANSETRON 4MG 2ML VIAL IV PRN (09:20)
[2024-09-21] MEDS: METOPROLOL 5 MG/5 ML VIAL IV STA ×3 (09:45→10:03)
[2024-09-21] MEDS ORDERED: CEPH500C PO (10:01)
[2024-09-21] MEDS: dilTIAZem 25MG/5ML VIAL IV STA (10:42)
[2024-09-21] MEDS ORDERED: ACETAMINOPHEN 325 MG TAB PO PRN (10:45)
[2024-09-21 11:36] LABS: BASO % 0.1 % (0.0-1.0); EOS # 0.1 10^3/uL (0.0-0.5); EOS % 0.4 % (0.0-3.0); HEMATOCRIT 41.6 % (36.0-47.0); HEMOGLOBIN 13.5 g/dl (12.0-15.5); LYMPH # 0.9 10^3/uL (1.5-5.0); LYMPH % 6.7 % (24.0-44.0); MEAN CORPUSCULAR HGB CONC 32.5 g/dl (32.0-36.5); MEAN CORPUSCULAR VOLUME 83.2 fl (80.0-96.0); MONO # 0.4 10^3/uL (0.0-0.8); MONO % 2.6 % (2.0-8.0); NEUTROPHILS # 12.3 10^3/uL (1.5-8.5); NEUTROPHILS % 89.8 % (36.0-66.0); PLATELET COUNT, AUTOMATED 253 10^3/uL (150-450); WHITE BLOOD COUNT 13.7 10^3/uL (4.0-10.0)
[2024-09-21 12:08] LABS: BLOOD UREA NITROGEN 22 MG/DL (9-23); CALCIUM LEVEL 7.6 MG/DL (8.3-10.6); CARBON DIOXIDE LEVEL 22 MMOL/L (20-31); CHLORIDE LEVEL 110 MMOL/L (98-107); CREATININE FOR GFR 0.89 MG/DL (0.55-1.30); GLOMERULAR FILTRATION RATE > 60.0 (>45); GLUCOSE, FASTING 157 MG/DL (74-106); MAGNESIUM LEVEL 1.7 MG/DL (1.8-2.4); POTASSIUM SERUM 4.7 MMOL/L (3.5-5.1); SODIUM LEVEL 140 MMOL/L (136-145)
[2024-09-21] MEDS: MAG SULF 1GM/100ML (MAG RUN) 1 GM in IV 1 EA IV SCH (14:00)
[2024-09-21 15:00] VITALS: BP 112/73; TEMP 97.8; O2SAT 97
[2024-09-21] MEDS ORDERED: PRED10TA2 PO (15:35)
[2024-09-21] MEDS ORDERED: HOME MED LIST COMPLETE! XX SCH (15:40)
[2024-09-21 15:56] VITALS: BP 123/57; TEMP 98.2; O2SAT 94
[2024-09-21 19:42] VITALS: BP 124/62; TEMP 97.2; O2SAT 97
[2024-09-21] MEDS: APIXABAN 5 MG TAB (ELIQUIS) PO SCH (20:50)
[2024-09-21 20:51] VITALS: BP 123/65
[2024-09-21] MEDS: METOPROLOL TART 25 MG TABLET PO SCH (20:51)
[2024-09-21 23:33] VITALS: BP 132/64; TEMP 97; O2SAT 96
[2024-09-22 03:13] VITALS: BP 148/70; TEMP 97.1; O2SAT 96
[2024-09-22] MEDS ORDERED: GLUCOSE 4 GM CHEW PO PRN (07:10)
[2024-09-22] MEDS ORDERED: DEXTROSE 50% 50ML SYRINGE IV PRN (07:10)
[2024-09-22] MEDS ORDERED: GLUCAGON INJ 1MG VIAL SC PRN (07:10)
[2024-09-22 07:54] VITALS: BP 123/66; TEMP 97.6; O2SAT 96
[2024-09-22] MEDS: INSULIN LISPRO (NovoLOG) PER UNIT SC SCH (08:17)
[2024-09-22] MEDS: MAGNESIUM OXIDE 400MG TAB (MAG-OX) PO SCH (08:17)
[2024-09-22] MEDS: METOPROLOL TART 25 MG TABLET PO SCH (08:18)
[2024-09-22] MEDS ORDERED: ELIQ5TAB PO (10:20)
[2024-09-22] MEDS ORDERED: MAGN400T2 PO (10:20)
[2024-09-22] MEDS ORDERED: METO1TAB87 PO (10:20)
[2024-09-22] MEDS ORDERED: CALC500C16 PO (10:26)
[2024-09-22] MEDS: CALCIUM CHLORIDE 10% 1 GM in D5W 100 ML IV ONE (10:55)
[2024-09-22] MEDS ORDERED: XARE20TA PO (11:55)
[2024-09-22 12:00] VITALS: BP 126/64; TEMP 97.8; O2SAT 98
[2024-09-22 12:12] LABS: IONIZED CALCIUM 4.9 MG/DL (4.5-5.3)
[2024-09-22 12:49] LABS: MAGNESIUM LEVEL 2.2 MG/DL (1.8-2.4)
[2024-09-22 12:53] LABS: THYROID STIMULATING HORMONE 2.704 uIU/ML (0.55-4.78)
[2024-09-22 12:54] LABS: FREE T4 1.24 NG/DL (0.89-1.76)
[2024-09-22] MEDS: CEPHALEXIN 500 MG CAP PO SCH (12:58)
[2024-09-22] MEDS ORDERED: LANC1COM MC (14:43)
[2024-09-22] MEDS ORDERED: GLUCMIS7 XX (14:43)
[2024-09-22] MEDS ORDERED: INSULIN LISPRO (NovoLOG) PER UNIT SC SCH (21:00)
== END 2024-09-22 15:37 | disposition home or self-care (01) ==
LOC: M SDC 06:05 → INTOOBSV 11:16 → M RR INP 11:16 → M PCU 15:05
PROVIDERS: ADMIT Student in an Organized Health Care Education/Training Program; ATTEND Urology
DX: N13.1 Hydronephrosis with ureteral stricture, not elsewhere classified (principal); R00.0 Tachycardia, unspecified; I48.91 Unspecified atrial fibrillation; E11.9 Type 2 diabetes mellitus without complications; E83.42 Hypomagnesemia; I10 Essential (primary) hypertension; E66.01 Morbid (severe) obesity due to excess calories; Z68.41 Body mass index [BMI] 40.0-44.9, adult; Z85.038 Personal history of other malignant neoplasm of large intestine; Z90.49 Acquired absence of other specified parts of digestive tract; Z87.442 Personal history of urinary calculi; Z90.79 Acquired absence of other genital organ(s); Z98.51 Tubal ligation status; Z88.0 Allergy status to penicillin; Z88.8 Allergy status to other drugs, medicaments and biological substances; Z88.3 Allergy status to other anti-infective agents; Z91.048 Other nonmedicinal substance allergy status; Z79.899 Other long term (current) drug therapy
CPT/HCPCS: 36415; 52234; 76000; 80048; 82330; 83036; 83735; 84439; 84443; 84484; 85025; 93005; 93306; 96365; 96367; 97161; 97530; C1769; G0378; J0131; J0690; J1100; J1815; J1920; J2250; J2371; J2405; J3010; J3475; Q9967

== ENCOUNTER → 2024-10-31 | Outpatient (CLI) | payer MEDICARE ==
[~2024-10-31] MED LIST changes: +CALC500C16 PO; +CEPH500C PO; +ELIQ5TAB PO; +GLUCMIS7 XX; +IBUP-1114 PO; +LANC1COM MC; +MAGN400T2 PO; +METO1TAB87 PO; +PRED10TA2 PO; +XARE20TA PO
[2024-10-31 16:50] LABS: BASO # 0.1 10^3/uL (0.0-0.2); BASO % 0.7 % (0.0-1.0); EOS # 0.7 10^3/uL (0.0-0.5); EOS % 7.9 % (0.0-3.0); HEMATOCRIT 42.9 % (36.0-47.0); HEMOGLOBIN 13.6 g/dl (12.0-15.5); LYMPH % 21.9 % (24.0-44.0); MEAN CORPUSCULAR HEMOGLOBIN 26.7 pg (27.0-33.0); MEAN CORPUSCULAR HGB CONC 31.7 g/dl (32.0-36.5); MEAN CORPUSCULAR VOLUME 84.3 fl (80.0-96.0); MONO # 0.8 10^3/uL (0.0-0.8); MONO % 8.5 % (2.0-8.0); NEUTROPHILS # 5.5 10^3/uL (1.5-8.5); NEUTROPHILS % 60.7 % (36.0-66.0); PLATELET COUNT, AUTOMATED 260 10^3/uL (150-450); RED BLOOD COUNT 5.09 10^6/uL (4.00-5.40); WHITE BLOOD COUNT 9.1 10^3/uL (4.0-10.0)
[2024-10-31 17:03] LABS: BLOOD UREA NITROGEN 15 MG/DL (9-23); CALCIUM LEVEL 8.8 MG/DL (8.3-10.6); CARBON DIOXIDE LEVEL 29 MMOL/L (20-31); CHLORIDE LEVEL 104 MMOL/L (98-107); CREATININE FOR GFR 0.86 MG/DL (0.55-1.30); GLOMERULAR FILTRATION RATE > 60.0 (>45); GLUCOSE, FASTING 84 MG/DL (74-106); POTASSIUM SERUM 4.8 MMOL/L (3.5-5.1); SODIUM LEVEL 139 MMOL/L (136-145)
[2024-10-31 17:09] LABS: INR 1.81; PROTHROMBIN TIME 21.2 SECONDS (12.5-14.5)
== END ==
LOC: M PLALAB 14:52
PROVIDERS: ATTEND Registered Nurse
DX: Z01.818 Encounter for other preprocedural examination (principal); Z79.01 Long term (current) use of anticoagulants

== ENCOUNTER → 2024-11-06 | Outpatient (CLI) | payer MEDICARE ==
[~2024-11-06] MED LIST changes: +ACETAMINOPHEN 325 MG TAB PO PRN; +ISOVUE-300 61% 100ML VIAL As Ordered ONE; +LIDOCAINE 1% MDV 20ML VIAL As Ordered ONE; +LIDOCAINE 2% 100MG/5ML SDV (FOR ANES.) As Ordered ONE; +MIDAZOLAM INJ 2MG/2ML VIAL As Ordered ONE; +MORPHINE 2 MG/ML 1ML VIAL IV PRN; +NS (Normal Saline) 0.9% 1,000 ML IV SCH; +ONDANSETRON 4MG 2ML VIAL IV PRN; +PERCOCET 5MG/325MG TAB PO PRN; +ROCURONIUM BROMIDE 50MG/5ML VIAL As Ordered ONE; +SUGAMMADEX SODIUM 500 MG/5 ML VIAL (BRIDION) As Ordered ONE; +fentaNYL 100 MCG/2 ML INJECTION As Ordered ONE
[2024-11-06] MEDS: ISOVUE-300 61% 100ML VIAL IV ONE (11:26)
[2024-11-06] MEDS: CIPROFLOXACIN 400 MG in IV 1 EA IV ONE (11:27)
[2024-11-06] MEDS: LIDOCAINE 1% MDV 20ML VIAL SC ONE (11:27)
[2024-11-06] MEDS: LR 1,000 ML IV SCH (11:27)
[2024-11-06 14:00] VITALS: BP 134/72; TEMP 96.8; O2SAT 98
== END ==
LOC: M IRPRO 09:08
PROVIDERS: ATTEND Urology
DX: N13.5 Crossing vessel and stricture of ureter without hydronephrosis (principal)
CPT/HCPCS: 50432; 87075; 87086; 87205; 93005; C1729; C1894; J0744; J2250; J3010; Q9967

== ENCOUNTER → 2024-11-27 | Outpatient (CLI) | payer MEDICARE ==
[~2024-11-27] MED LIST changes: -ACETAMINOPHEN 325 MG TAB PO PRN; -LIDOCAINE 2% 100MG/5ML SDV (FOR ANES.) As Ordered ONE; -MORPHINE 2 MG/ML 1ML VIAL IV PRN; -NS (Normal Saline) 0.9% 1,000 ML IV SCH; -ONDANSETRON 4MG 2ML VIAL IV PRN; -PERCOCET 5MG/325MG TAB PO PRN; -ROCURONIUM BROMIDE 50MG/5ML VIAL As Ordered ONE; -SUGAMMADEX SODIUM 500 MG/5 ML VIAL (BRIDION) As Ordered ONE
[2024-11-27] MEDS: fentaNYL 100 MCG/2 ML INJECTION IV STA ×2 (15:38→15:44)
[2024-11-27] MEDS: MIDAZOLAM INJ 2MG/2ML VIAL IV STA ×2 (15:38→15:43)
[2024-11-27] MEDS: NS (Normal Saline) 0.9% 1,000 ML IV SCH (15:45)
[2024-11-27] MEDS: CIPROFLOXACIN 400 MG in IV 1 EA IV ONE (15:45)
[2024-11-27] MEDS: ISOVUE-300 61% 100ML VIAL IV STA (16:06)
[2024-11-27] MEDS: LIDOCAINE 1% MDV 20ML VIAL IM STA (16:06)
[2024-11-27 16:31] VITALS: BP 156/83; O2SAT 98
== END ==
LOC: M IRPRO 12:48
PROVIDERS: ATTEND Radiology Diagnostic Radiology
DX: N13.5 Crossing vessel and stricture of ureter without hydronephrosis (principal)
CPT/HCPCS: 50435; 99152; 99153; C1729; C1894; J0744; J2250; J3010; Q9967

== ENCOUNTER → 2024-11-29 | Outpatient (CLI) | payer MEDICARE ==
[~2024-11-29] MED LIST changes: -ISOVUE-300 61% 100ML VIAL As Ordered ONE; -LIDOCAINE 1% MDV 20ML VIAL As Ordered ONE; -MIDAZOLAM INJ 2MG/2ML VIAL As Ordered ONE; -fentaNYL 100 MCG/2 ML INJECTION As Ordered ONE
[2024-11-29 13:25] LABS: BLOOD UREA NITROGEN 14 MG/DL (9-23); CALCIUM LEVEL 8.7 MG/DL (8.3-10.6); CARBON DIOXIDE LEVEL 30 MMOL/L (20-31); CHLORIDE LEVEL 103 MMOL/L (98-107); GLOMERULAR FILTRATION RATE > 60.0 (>45); GLUCOSE, FASTING 97 MG/DL (74-106); POTASSIUM SERUM 4.5 MMOL/L (3.5-5.1); SODIUM LEVEL 137 MMOL/L (136-145)
== END ==
LOC: M PLALAB 11:21
PROVIDERS: ATTEND Radiology Diagnostic Radiology
DX: N13.9 Obstructive and reflux uropathy, unspecified (principal)

== ENCOUNTER → 2024-11-29 | Outpatient (REF) | payer MEDICARE ==
[2024-11-29 13:47] LABS: APPEARANCE, URINE MANUAL CLOUDY (CLEAR); COLOR, URINE MANUAL AMBER (YELLOW)
[2024-11-29 13:48] LABS: BILIRUBIN, URINE MANUAL NEGATIVE (NEGATIVE); GLUCOSE, URINE (UA) MANUAL 2+(250 MG/DL) mg/dL (NEGATIVE); KETONE, URINE MANUAL NEGATIVE (NEGATIVE); NITRITE, URINE MANUAL NEGATIVE (NEGATIVE); PROTEIN, URINE MANUAL 3+ mg/dL (NEGATIVE); SPECIFIC GRAVITY,URINE MANUAL 1.005 (1.002-1.035); UROBILINOGEN, URINE MANUAL NORMAL (NORMAL)
[2024-11-29 13:49] LABS: BLOOD URINE MANUAL POSITIVE (NEGATIVE); LEUKOCYTE ESTERASE, URINE MAN POSITIVE (NEGATIVE)
[2024-11-29 13:50] LABS: BACTERIA, URINE SMALL AMOUNT; HYALINE CAST, URINE NONE SEEN /lpf (0-1); RBC, URINE 20-30 /hpf (0-3); SQUAMOUS EPITHELIAL CELL URINE SMALL AMOUNT /hpf (SMALL AMT)
[2024-11-29 13:51] LABS: MUCUS, URINE SMALL AMOUNT (NEGATIVE)
== END ==
LOC: EEVIPCON 12:34 → M SMT 12:34
PROVIDERS: ATTEND Physician Assistant
DX: L03.90 Cellulitis, unspecified (principal)

== ENCOUNTER → 2024-11-29 | Outpatient (REF) | payer MEDICARE | LOC: M SMT 12:33 | PROVIDERS: ATTEND Physician Assistant | DX: L03.90 Cellulitis, unspecified (principal) ==

== ENCOUNTER → 2024-11-29 | Outpatient (CLI) | payer MEDICARE ==
[2024-11-29 12:45] LABS: BASO % 0.4 % (0.0-1.0); EOS # 0.3 10^3/uL (0.0-0.5); EOS % 2.8 % (0.0-3.0); HEMATOCRIT 40.6 % (36.0-47.0); HEMOGLOBIN 12.8 g/dl (12.0-15.5); LYMPH # 1.4 10^3/uL (1.5-5.0); MEAN CORPUSCULAR HEMOGLOBIN 26.3 pg (27.0-33.0); MEAN CORPUSCULAR HGB CONC 31.5 g/dl (32.0-36.5); MEAN CORPUSCULAR VOLUME 83.4 fl (80.0-96.0); MONO % 10.1 % (2.0-8.0); NEUTROPHILS # 7.3 10^3/uL (1.5-8.5); NEUTROPHILS % 72.3 % (36.0-66.0); PLATELET COUNT, AUTOMATED 342 10^3/uL (150-450); RED BLOOD COUNT 4.87 10^6/uL (4.00-5.40); WHITE BLOOD COUNT 10.1 10^3/uL (4.0-10.0)
[2024-11-29 12:57] LABS: INR 2.42; PROTHROMBIN TIME 26.4 SECONDS (12.5-14.5)
[2024-11-29 13:24] LABS: BLOOD UREA NITROGEN 15 MG/DL (9-23); CALCIUM LEVEL 8.7 MG/DL (8.3-10.6); CARBON DIOXIDE LEVEL 28 MMOL/L (20-31); CHLORIDE LEVEL 99 MMOL/L (98-107); CREATININE FOR GFR 0.89 MG/DL (0.55-1.30); GLOMERULAR FILTRATION RATE > 60.0 (>45); GLUCOSE, FASTING 99 MG/DL (74-106); POTASSIUM SERUM 4.4 MMOL/L (3.5-5.1); SODIUM LEVEL 137 MMOL/L (136-145)
== END ==
LOC: M PLALAB 11:23
PROVIDERS: ATTEND Registered Nurse
DX: Z01.818 Encounter for other preprocedural examination (principal)

== ENCOUNTER → 2024-12-03 | Outpatient (CLI) | payer MEDICARE ==
[~2024-12-03] MED LIST changes: +ISOVUE-370 76% 100ML VIAL ONE
== END ==
LOC: M PLAIMG 12:22
PROVIDERS: ATTEND Radiology Diagnostic Radiology
DX: N13.8 Other obstructive and reflux uropathy (principal); N13.30 Unspecified hydronephrosis; Z93.6 Other artificial openings of urinary tract status; R59.0 Localized enlarged lymph nodes; R93.5 Abnormal findings on diagnostic imaging of other abdominal regions, including retroperitoneum; N26.1 Atrophy of kidney (terminal)
CPT/HCPCS: 74160; Q9967

== ENCOUNTER → 2024-12-18 | Outpatient (CLI) | payer MEDICARE ==
[~2024-12-18] MED LIST changes: -ISOVUE-370 76% 100ML VIAL ONE
== END ==
LOC: M IRPRO 13:52
PROVIDERS: ATTEND Radiology Diagnostic Radiology
DX: N13.9 Obstructive and reflux uropathy, unspecified (principal); Z53.9 Procedure and treatment not carried out, unspecified reason

== ENCOUNTER → 2024-12-20 | Outpatient (CLI) | payer MEDICARE ==
[2024-12-20 17:49] LABS: HEMOGLOBIN A1c 6.4 % (4.0-6.0)
== END ==
LOC: M PLALAB 12:33
PROVIDERS: ATTEND Registered Nurse
DX: R73.01 Impaired fasting glucose (principal)

== ENCOUNTER → 2025-05-07 | Outpatient (CLI) | payer MEDICARE ==
[~2025-05-07] MED LIST changes: -FLOM0.4C39 PO; +LOSA25TA13; +TAMS-18 PO
[2025-05-07 14:50] LABS: ALT/SGPT 14.0 U/L (7.0-40); AST/SGOT 16.0 U/L (<34); CALCIUM LEVEL 8.9 MG/DL (8.3-10.6); CARBON DIOXIDE LEVEL 30.0 MMOL/L (20-31); CHLORIDE LEVEL 104.0 MMOL/L (98-107); CHOLESTEROL LEVEL 187.0 MG/DL (<200); CHOLESTEROL RISK RATIO 3.2 (<5); CREATININE FOR GFR 0.95 MG/DL (0.55-1.30); GLOMERULAR FILTRATION RATE 64.5 (>39); LDL CHOLESTEROL 113.5 MG/DL (<100); NON-HDL-C 128.7 MG/DL; POTASSIUM SERUM 4.3 MMOL/L (3.5-5.1); SODIUM LEVEL 142.0 MMOL/L (136-145); TRIGLYCERIDES LEVEL 76.0 MG/DL (<150)
[2025-05-07 15:05] LABS: CREATININE, URINE 105.6 MG/DL; MALB URINE SIEMENS < 3.0 MG/L
[2025-05-07 16:52] LABS: ESTIMATED AVERAGE GLUCOSE 146.0 MG/DL (60-110)
== END ==
LOC: M PLALAB 09:45
PROVIDERS: ATTEND Registered Nurse
DX: R73.03 Prediabetes (principal); Z79.899 Other long term (current) drug therapy

== ENCOUNTER → 2025-06-05 | Outpatient (CLI) | payer MEDICARE | LOC: M WHC 10:31 | PROVIDERS: ATTEND Obstetrics & Gynecology | DX: Z12.31 Encounter for screening mammogram for malignant neoplasm of breast (principal); Z13.820 Encounter for screening for osteoporosis; M85.89 Other specified disorders of bone density and structure, multiple sites; R92.313 Mammographic fatty tissue density, bilateral breasts ==